=== PATIENT | female | born 1980 | race Caucasian/White ===

== ENCOUNTER 2022-03-07 09:12 | Outpatient (CLI) | payer OTHER, SELFPAY ==
[2022-03-07 10:24] LABS: Albumin* 4.8 g/dL (3.3-5.0); Chloride* 101 mmol/L (96-114); Potassium* 4.4 mmol/L (3.6-5.1); Sodium* 138 mmol/L (135-149)
[2022-03-07 10:26] LABS: Creatinine* 0.8 mg/dL (0.5-1.5); Estimated Glomerular Filt Rate 94 ml/min
[2022-03-07 10:27] LABS: Alanine Aminotransferase* 16 U/L (4-35); Alkaline Phosphatase* 58 U/L (40-150); Aspartate Amino Transferase* 24 U/L (12-35); Bilirubin Total* 0.6 mg/dL (0.1-1.5); Blood Urea Nitrogen* 12 mg/dL (5-24); Carbon Dioxide* 27 mmol/L (20-32)
[2022-03-07 10:28] LABS: Calcium* 9.5 mg/dL (8.4-10.6); Glucose* 89 mg/dL (60-115)
[2022-03-07 10:33] LABS: C Reactive Protein* < 0.5 mg/dL (0.5-1.0)
[2022-03-08 17:06] LABS: Rheumatoid Factor < 10 IU/mL (0-14)
[2022-03-09 05:07] LABS: Anti-Nuclear Ab(ANA)IgG ELISA None Detected (None Detected)
[2022-03-09 09:45] LABS: HLA-B27 Negative (Negative)
== END 2022-03-07 09:13 | disposition home or self-care (01) ==
PROVIDERS: PCP Family Medicine; Visit Provider Family Medicine
DX: Z01.419 Encounter for gynecological examination (general) (routine) without abnormal findings (principal); M25.50 Pain in unspecified joint; E78.5 Hyperlipidemia, unspecified; Z13.9 Encounter for screening, unspecified; N20.0 Calculus of kidney
CPT/HCPCS: 80053; 86039; 86140; 86200; 86431; 86618; 86812

== ENCOUNTER 2022-05-15 15:21 | Outpatient (CLI) | payer OTHER, SELFPAY ==
--- OUTSIDE RECORDS SUMMARY | 2022-05-15 15:23 | XMS_ITS | Clinical Summary ---
:1980 Author Organization [facility] [place] [address] Care Team Providers Name Role Phone Pcp, No Primary Care Provider Unavailable Allergies Active Allergy Reactions Severity Noted Date Comments Gluten Other - Describe In Comment Field 013 Celiac disease Nitrofurantoin Hives 11/01/2008 Medications Medication Sig Dispensed Refills Start Date End Date Status azithromycin (ZITHROMAX) Take 500 mg (2 6 tablet 0 02/20/2013 Active 250 mg tablet tabs) by mouth on day 1, then 250 mg (1 tab) daily for days 2-5. Active Problems Problem Noted Date Seasonal allergies Celiac disease Social History Tobacco Use Types Packs/Day Years Used Date Former Smoker Quit: 02/16/20 03 Tobacco Cessation: Counseling Given: Yes Alcohol Use Standard Drinks/Week Comments Not Asked 0 (1 standard drink = 0.6 oz pure alcoho l) Sex Assigned at Date Recorded Not on file Obstetrics History Last Filed Vital Signs Vital Sign Reading Time Taken Comments Blood Pressure 109/73 02/20/2013 7:09 AM CDT Pulse 65 02/20/2013 7:09 AM CDT Temperature 36.8 ??C (98.3 ??F) 02/20/2013 7:09 AM CDT Respiratory Rate - - Oxygen Saturation 99% 07/16/2012 7:28 AM [employer] Inhaled Oxygen Concentration - - Weight 58.3 kg (128 lb 9.6 oz) 02/20/2013 7:09 AM CDT Height - - Body Mass Index - - Plan of Treatment Health Maintenance Due Date Last Done Comments COVID-19 vaccine series (#1) 1980 Tdap 1989 Depression screening for age 12+ 1990 HIV for age 15-65 1993 BMI (ht and wt on same day) for 1996 age 18+ Hepatitis C screening for age 1004/05/1996 18-79 Tetanus booster 1998 Influenza for age 9-49 02/15/2022 Pap test for age 21-65 08/12/2023 08/12/2020, 08/12/2020, 09/28/2015, Additional history exists Results Not on filefrom Last 3 Months Insurance Payer Benefit Plan / Subscriber ID Effective Dates Phone Addre ss Type Group BLUE CROSS BL[employer] OF [id number] 2013-Present [address] [place] [address] ([place]) [place] [address] Care Teams Barytes Grinder Relationship Specialty Start Date End Date Pcp, No PCP - General 09/20/06 .
--- OUTSIDE RECORDS SUMMARY | 2022-05-15 15:23 | XMS_ITS | Encounter Summary ---
:1980 Author Organization [facility] Address [address] [place] [address] Care Team Providers Name Role Phone Unavailable Primary Care Provider Unavailable Reason for Referral Outpatient (Routine) - Pending Review Specialty Diagnoses / Procedures Referred By Contact Refer red To Contact Diagnoses Celiac Disease Bloating Abdominal Nazario Live M.D. [facility] Procedures Breath test, Hydrogen, Lactose - Lactase deficiency [address] [place] [address] Referral ID Status Reason Start Date Expiration Date Visits V isits Requested Authorized [id number] Pending 03/27/2022 03/27/2023 1 1 Review Reason for Visit Outpatient (Routine) - Pending Review Specialty Diagnoses / Procedures Referred By Contact Refer red To Contact Diagnoses Celiac Disease Bloating Abdominal Nazario Live M.D. [facility] Procedures Breath test, Hydrogen, Lactose - Lactase deficiency [address] [place] [address] Referral ID Status Reason Start Date Expiration Date Visits V isits Requested Authorized [id number] Pending 03/27/2022 03/27/2023 1 1 Review Encounter Details Date Type Department Care Team Description 03/28/2022 Hospital Division of Nazario Live e; Encounter Gastroenterology in [facility] Bloating Abdominal [place], [place] [address] [facility] [address] [place] [phone] Social History Tobacco Use Types Packs/Day Years Used Date Smoking Tobacco: Never Alcohol Habits Answer Date Recorded How often do you have a drink containing alcohol? 2-3 times a week 03/25/2022 How many drinks containing alcohol do you have on a 1 or 2 03/25/2022 typical day when you are drinking? How often do you have six or more drinks on one Never 03/25/2022 occasion? Social Isolation Answer Date Recorded In a typical week, how many times do you Once a week 03/25/2022 talk on the phone with family, friends, or neighbors? How often do you get together with friends Once a week 03/25/2022 or relatives? How often do you attend anabaptist or pentecostalism Never 03/25/2022 services? Do you belong to any clubs or organizations Yes 03/25/2022 such as anabaptist groups, unions, fraternal or athletic groups, or school groups? How often do you attend meetings of the More than 4 times r year 03/25/2022 clubs or organizations you belong to? Are you now , , , 03/25/2022 , never or living with a partner? Physical Activity Answer Date Recorded On average, how many days per week do you engage in moderate to 6 days 03/25/2022 strenuous exercise (like walking fast, running, jogging, dancing, swimming, biking, or other activities that cause a light or heavy sweat)? On average, how many minutes do you engage in exercise at th is 40 min 03/25/2022 level? Stress Answer Date Recorded Do you feel stress - tense, restless, nervous, or Only a lit tle 03/25/2022 anxious, or unable to sleep at night because your mind is troubled all the time - these days? Financial Resource Strain Answer Date Recorded How hard is it for you to pay for the very basics like Not h beau at all 03/25/2022 food, housing, medical care, and heating? Intimate Partner Violence Answer Date Recorded Within the last year, have you been afraid of your partner o r No 03/25/2022 ex-partner? Within the last year, have you been humiliated or emotionall y No 03/25/2022 abused in other ways by your partner or ex-partner? Within the last year, have you been kicked, hit, slapped, or No 03/25/2022 otherwise physically hurt by your partner or ex-partner? Within the last year, have you been raped or forced to have any No 03/25/2022 kind of sexual activity by your partner or ex-partner? Food Insecurity Answer Date Recorded Within the past 12 months, you worried that your food would Never true 03/25/2022 run out before you got money to buy more. Within the past 12 months, the food you bought just didn't N ever true 03/25/2022 last and you didn't have money to get more. Transportation Needs Answer Date Recorded In the past 12 months, has lack of transportation kept you f rom No 03/25/2022 medical appointments or from getting medications? In the past 12 months, has lack of transportation kept you f rom No 03/25/2022 meetings, work, or getting things needed for daily living? Housing Stability Answer Date Recorded In the last 12 months, was there a time when you were not ab le No 03/25/2022 to pay the mortgage or rent on time? In the last 12 months, how many places have you lived? 1 03/25/2022 In the last 12 months, was there a time when you did not hav e a No 03/25/[address] to [address] or slept in a longterm (including now)? Education Answer Date Recorded What is the highest level of school Master's degree (e.g., M A, MS, 03/25/2022 you have completed or the highest Alli, MEd, TELEPHONE COLLECTOR, MARVIN) degree you have received? Sex Assigned at Date Recorded Female 03/25/2022 11:18 AM CDT documented as of this encounter Plan of Treatment Scheduled Orders Name Type Priority Associated Diagnoses Order S chedule Breath test, Hydrogen, GI Routine Celiac Di sease Once for 1 Occurrences Lactose - Lactase Bloating Abdominal star ting 03/28/2022 deficiency until 2 documented as of this encounter Procedures Procedure Name Priority Date/Time Associated Diagnosis Comme nts HYDROGEN BREATH Routine 03/28/2022 9:14 AM Result s for this TEST CDT procedure are i n the results section. documented in this encounter Results Hydrogen Breath Test (03/28/2022 9:14 AM CDT) [facility] Method Time Signature Hydrogen Lactose 04/02/2022 [facility] Breath Test 7:42 AM CDT Peak H2 15 0 - 20 04/02/2022 [facility] Response ppm 7:42 AM CDT Hydrogen, 9 ppm 04/02/2022 [facility] Baseline 7:42 AM CDT Hydrogen, 30 10 ppm 04/02/2022 [facility] Minutes 7:42 AM CDT Hydrogen, 60 18 ppm 04/02/2022 [facility] Minutes 7:42 AM CDT Hydrogen, 90 21 ppm 04/02/2022 [facility] Minutes 7:42 AM CDT Hydrogen, 120 24 ppm 04/02/2022 [facility] Minutes 7:42 AM CDT Peak CH4 3 0 - 20 04/02/2022 [facility] Response ppm 7:42 AM CDT Methane, 6 ppm 04/02/2022 [facility] Baseline 7:42 AM CDT Methane, 30 7 ppm 04/02/2022 [facility] Minutes 7:42 AM CDT Methane, 60 8 ppm 04/02/2022 [facility] Minutes 7:42 AM CDT Methane, 90 9 ppm 04/02/2022 [facility] Minutes 7:42 AM CDT Methane, 120 8 ppm 04/02/2022 [facility] Minutes 7:42 AM CDT Symptoms See Comment 03/29/2022 [facility] 1:31 PM CDT Comment: REVISED RESULTS Positive breath test for lactose malabso rption. Although the patient did not have a significant rise of breath hydrog en, methane was detected and the patient experienced a combined hydrogen- methane increase of a least 15 PPM. These findings are suggestive of lactose malabsorption. ??Symptoms: ? Baseline: none ?? 30 Minute: none ?? 60 Minute: mild gas ?? 90 Minute: none 120 Minute: none Rolando Prater [id number] ----PREVIOUSLY REPORTED ---- Positive breath test for lactose malabsorption. Although the patient did not have a significant rise of breath hydrogen, methane was detected and the p atient experienced a combined hydrogen-methane increase of a least 15 PPM. These findings are suggestive of lactose malabsorption. ??Symptoms: ? Baseline: none ?? 30 Minute: none ?? 60 Minute: mild gas ?? 90 Minute: none 120 Minute: none Dennis Logan [id number] (Reported 03/28/2022 11:22) Specimen Anatomical Collection Method Collection Time Receive d Time (Source) Location / / Volume Laterality Breath 03/28/2022 9:14 AM 9:14 CDT AM CDT Nazario Live M.D. LAB BODY FLUIDS AND STOOLS O RDERABLES Performing Organization Address City/State/ZIP Code Phon e Number [facility] - [address] [place], [place] [address] [place] [address] [address] documented in this encounter Visit Diagnoses Diagnosis Celiac Disease Bloating Abdominal documented in this encounter
--- OUTSIDE RECORDS SUMMARY | 2022-05-15 15:23 | XMS_ITS | Encounter Summary ---
:1980 Author Organization [facility] Address [address] [place] [address] Care Team Providers Name Role Phone Unavailable Primary Care Provider Unavailable Encounter Details Date Type Department Care Team Description 03/27/2022 Clinical Support - Division of [facility] Gastroenterology in [place], [place], [place] [address] [facility] [address] [place] [phone] Social History Tobacco Use Types Packs/Day Years [...] or relatives? How often do you attend confucianism or yarsani Never 03/25/2022 services? Do you belong to any clubs or organizations Yes 03/25/2022 such as confucianism groups, unions, fraternal or athletic groups, or school groups? How often do you attend meetings of the More than 4 times pe r year 03/25/2022 clubs or organizations you [...] place to sleep or slept in a care home (including now)? Education Answer Date Recorded What is the highest level of school Master's degree (e.g., Aroldo Townsend, , 03/25/2022 you have completed or the highest Alli, MEd, CAPACITY MANAGER, MARVIN) degree you have received? Sex Assigned at Date Recorded Female 03/25/2022 11:18 AM CDT documented as of this encounter Plan of Treatment Not on filedocumented as of this encounter Visit Diagnoses Not on filedocumented in this encounter
--- OUTSIDE RECORDS SUMMARY | 2022-05-15 15:23 | XMS_ITS | Encounter Summary ---
:1980 Author Organization [facility] Address [address] [place] [address] Care Team Providers Name Role Phone Unavailable Primary Care Provider Unavailable Reason for Referral Outpatient (Routine) - Pending Review Specialty Diagnoses / Procedures Referred By Contact Refer red To Contact Diagnoses Celiac Disease Mary Chan M.D. [facility] Procedures EGD (EsophagealGastroDuodenoscopy) [address] [place], [place] [address] Referral ID Status Reason Start Date Expiration Date Visits V isits Requested Authorized [id number] Pending 03/16/2022 03/16/2023 1 1 Review Reason for Visit Outpatient (Routine) - Pending Review Specialty Diagnoses / Procedures Referred By Contact Refer red To Contact Diagnoses Celiac Disease Mary Chan M.D. [facility] Procedures EGD (EsophagealGastroDuodenoscopy) [address] [place] [address] Referral ID Status Reason Start Date Expiration Date Visits V isits Requested Authorized [id number] Pending 03/16/2022 03/16/2023 1 1 Review Encounter Details Date Type Department Care Team Description 03/30/2022 Hospital Encounter Division of Mary Chan Disease Gastroenterology in [facility] Townsend [place], [place] [address] [facility] [address] [place] [phone] Social History Tobacco Use Types Packs/Day Years Used Date Smoking Tobacco: Never Smokeless Tobacco: Former Tobacco Cessation: Counseling Given: Not Answered Alcohol Use Standard Drinks/Week Comments Yes 7 (1 standard drink = 0.6 oz pure alcoho l) Alcohol Habits Answer Date Recorded How often [...] or relatives? How often do you attend uatsdin or alevism Never 03/25/2022 services? Do you belong to any clubs or organizations Yes 03/25/2022 such as uatsdin groups, unions, fraternal or athletic groups, or [...] place to sleep or slept in a correction (including now)? Education Answer Date Recorded What is the highest level of school Master's degree (e.g., M A, MS, 03/25/2022 you have completed or the highest Alli, MEd, THERMOGRAPH OPERATOR, MARVIN) degree you have received? Sex Assigned at Date Recorded Female 03/25/2022 11:18 AM CDT documented as of this encounter Last Filed Vital Signs Vital Sign Reading Time Taken Comments Blood Pressure 123/82 03/30/2022 2:45 PM CDT Pulse 61 03/30/2022 2:45 PM CDT Temperature 36.4 ??C (97.5 ??F) 03/30/2022 2:31 PM CDT Respiratory Rate 14 03/30/2022 2:45 PM CDT Oxygen Saturation 100% 03/30/2022 2:45 PM CDT Inhaled Oxygen Concentration - - Weight 62.5 kg (137 lb 14.4 oz) 03/30/2022 1:44 PM CDT Height 161.2 cm (5' 3.47) 03/30/2022 1:44 PM CDT Body Mass Index 24.07 03/30/2022 1:44 PM CDT documented in this encounter Plan of Treatment Not on filedocumented as of this encounter Procedures Procedure Name Priority Date/Time Associated Diagnosis Comme nts SURGICAL PATHOLOGY Routine 03/30/2022 2:19 PM Res ults for this CDT procedure are i n the results section. BACTERIAL CULTURE, Routine 03/30/2022 2:18 PM Res ults for this SIBO CDT procedure are i n the results section. UPPER GI ENDOSCOPY Routine 03/30/2022 1:51 PM Celiac Disease R esults for this CDT procedure are i n the results section. EGD Routine 03/30/2022 1:51 PM Celiac Disease (ESOPHAGEALGASTRODU CDT ODENOSCOPY) documented in this encounter Results Surgical Pathology (03/30/2022 2:19 PM CDT) Component Value Ref Test Analysis Performed Pathologis t Range Method Time At Signature 04/03/2022 DTL 2:26 PM CDT Participated in Jania Gutiérrez 04/03/2022 DTL the D.O. -Pathology 2:26 PM Interpretation Fellow CDT Report Alberto Ludwig M.D., Ph.D. 04/03/2022 DTL electronically 2:26 PM signed by CDT I verify that I have examined all relevant slides/materials for the specimen(s) and rendered or confirmed the diagnosis. Gross Description A: ??Received in formalin labeled with the patien t's name, 04/03/2022 DTL medical record number, and duodenum-duodenum, known 2:26 PM celiac, CDT second part duodenum are four pale diaz-pink irregular soft tissues, ranging from 0.4-0.5 cm in greatest dimension. Specimens are submitted en toto in cassette A1. ??Grossed by ALFONSO. Workup B: ??Received in formalin labeled with the patient's name, medical record number, and duodenum duodenum, known celiac, duodenal bulb are three pale diaz-pink irregular soft tissues, ranging from 0.3-0.4 cm in greatest dimension. Specimens are submitted en toto in cassette B1. ??Grossed by MBB. C: ??Received in formalin labeled with the patient's name, medical record number, and stomach-stomach, antrum, body of stomach, incisura are six pale diaz-pink irregular soft tissues, ranging from 0.2-0.6 cm in greatest dimension. Specimens are submitted en toto in cassette C1. ??Grossed by MBB. Addendum H. pylori immunostain (C1) is negative. 04/09/2022 DTL 10:32 AM Signed by Bismark Camara M.D. 04/09/2022 10:32 AM CDT This test was developed using an analyte specific reagent. Its performance characteristics were determined by [facility] in a manner consistent with CLIA requirements. This test has not been cleared or approved by the U.S. Food and Drug Administration. Comment: REVISED RESULTS Interpretation FINAL DIAGNOSIS 04/09/2022 10:32 AM CDT DTL A. Duodenum, 2nd part, endoscopic biopsy: ??Duodenal mucosa with focal foveolar metaplasia. ??No evidence of celiac disease, Whipple's disease, or Giardia identified. B. Duodenum, Duodenal bulb, endoscopic biopsy: ??Duodenal mucosa with mild Charo's gland hyperplasia. ??No evidence of celiac disease, Whipple's disease, or Giardia identified. C. Stomach, Antrum, Body, Incisura, endoscopic biopsy: Antral and fundic mucosa with mild chronic gastritis and focal intestinal metaplasia. ??An immunohistochemical stain for Helicobacter pylori is pending and will be reported in an addendum. Specimen (Source) Anatomical Collection Method Collection Time Re ceived Time Location / / Volume Laterality Biopsy (Duodenum) 03/30/2022 2:19 PM CDT Biopsy (Duodenum) 03/30/2022 2:20 PM CDT Biopsy (Stomach) 03/30/2022 2:24 PM CDT Narrative This result has an attachment that is no t available. Jaiden Byrd LAB SURG PATH ORDERABLES Performing Organization Address City/State/ZIP Code Phon e Number [facility] - [address] [address] Bacterial Culture, SIBO (03/30/2022 2:18 PM CDT) [facility] Method Time Signature Bacterial Total intestinal microbiota recovered, 1,000-10,000 cf u/mL 04/01/2022 DTL Culture, SIBO Aerobic bacteria recovered, 1,000-10,000 cfu/mL 7:43 AM CDT No anaerobic bacteria recovered. Specimen (Source) Anatomical Collection Method Collection Time Re ceived Time Location / / Volume Laterality Aspirate 03/30/2022 2:18 PM (Duodenum) CDT Jaiden Byrd LAB MICROBIOLOGY - GENERAL ORDERABLES Performing Organization Address City/State/ZIP Code Phon e Number [address] Upper GI Endoscopy (03/30/2022 1:51 PM CDT) Specimen (Source) Anatomical Collection Method Collection Time Re ceived Time Location / / Volume Laterality 03/30/2022 1:51 PM CDT Impressions [facility] - 03/30/2022 2:35 PM CDT Post-op Diagnoses: ? - Z-line regular, 39 cm from the incisors. ? - Normal esophagus. ? - Normal stomach. Biopsied. ? - Flattened mucosa was found in t he duodenum, consistent with celiac ? disease. Biopsied. ? - Fluid aspiration was performed. Narrative [facility] - 03/30/2022 2:35 PM CDT [facility] 9 GI GI Patient Name: Landy Pugh Date of : 1980 Age: 41 Gender: Female Procedure Date: 03/30/2022 Procedure: ? Upper GI endoscopy Providers: ? Merlene Ledezma MD Referring Provider: ?Mary rogers MD Pre-op Diagnoses: ?Celiac dise ase Recommendation: ? - The patient will be observed po st-procedure, until all discharge ? criteria are met. ? - Resume previous diet. ? - PATHOLOGY/MICROBIOLOGY FOLLOW-U P: The ordering provider is responsible ? for reviewing results from specim ens obtained during this endoscopic ? procedure and communicating the f indings to the patient. If guidance is ? needed for interpreting endoscopi c findings or pathology results, please ? consider a gastroenterology e-con sult. Findings: ? The Z-line was regular and was fo und 39 cm from the incisors. ? The examined esophagus was normal . ? The entire examined stomach was n ormal. Biopsies were taken with a cold ? forceps for Helicobacter pylori t esting. ? Diffuse mild mucosal flattening w as found in the second portion of the ? duodenum. Biopsies were taken wit h a cold forceps for histology. The ? duodenal bulb appeared normal and was biopsied in a seperate bottle as ? requsted. ? Fluid aspiration for microbiology was performed in the second portion of ? the duodenum. Procedural Details: ? The patient was seen, evaluated, history reviewed, airway and heart-lung ? exams were performed by licensed provider and were satisfactory for ? planned level of sedation care. ? The risks, benefits and alternati ves for the procedure and sedation were ? discussed and informed consent wa s obtained. A procedural pause was ? conducted in the presence of assi sting personnel to verify the correct ? patient identity and procedure to be performed. Throughout the ? procedure, the patient's blood pr essure, pulse, and oxygen saturations ? were monitored continuously. The Gastroscope was introduced under direct ? vision through the mouth, and adv anced to the second part of duodenum. ? The upper GI endoscopy was accomp lished without difficulty. The patient ? tolerated the procedure well. Estimated Blood Loss: ?Estimated blo od loss: none. Complications: ? No immedia te complications. Sedation: ? Anesthesia was administered by an anesthesia professional. The following ? parameters were monitored: oxygen saturation, heart rate, blood ? pressure, respiratory rate, EKG, adequacy of pulmonary ventilation, and ? response to care. Attending Participation: I personally pe rformed the entire procedure. Jaiden Ledezma MD 03/30/2022 2:34:52 PM This report has been signed electronical ly. Number of Addenda: 0 Mary Chan M.D. GI PROCEDURE ORDERABLES Performing Organization Address City/State/ZIP Code Phon e Number [facility] documented in this encounter Visit Diagnoses Diagnosis Celiac Disease documented in this encounter
--- OUTSIDE RECORDS SUMMARY | 2022-05-15 15:23 | XMS_ITS | Encounter Summary ---
:1980 Author Organization [facility] Address [address] [place] [address] Care Team Providers Name Role Phone Unavailable Primary Care Provider Unavailable Encounter Details Date Type Department Care Team Description 03/30/2022 Ancillary Procedure Department of Gastroenterology Social History Tobacco Use Types Packs/Day Years Used Date Smoking Tobacco: Never Smokeless Tobacco: Former Alcohol Use Standard Drinks/Week Comments Yes 7 [...] or relatives? How often do you attend restoration or holiness Never 03/25/2022 services? Do you belong to any clubs or organizations Yes 03/25/2022 such as restoration groups, unions, fraternal or athletic groups, or [...] have completed or the highest Alli, MEd, SEED SALES MANAGER, MARVIN) degree you have received? Sex Assigned at Date Recorded Female 03/25/2022 11:18 AM CDT documented as of this encounter Plan of Treatment Not on filedocumented as of this encounter Procedures Procedure Name Priority Date/Time Associated Comments Diagnosis GASTROENTEROLOGY IMAGE Routine 03/30/2022 1:55 Re sults for this EXAM PM CDT procedure are i n the results section. documented in this encounter Results Upper GI endoscopy-Gastroenterology Image Exam (03/30/2022 1:55 PM CDT) Specimen (Source) Anatomical Collection Method Collection Time Re ceived Time Location / / Volume Laterality 03/30/2022 1:51 PM CDT Narrative [facility] - 03/30/2022 2:44 PM CDT This order has been created and auto-finalized to support the import of images acquired without order. The clini lashae documentation to support these images can be found on the encounter akilah t produced images. Provider Not In System IMG NON RAD IMAGING PROCEDUR ES Performing Organization Address City/State/ZIP Code Phon e Number [facility] documented in this encounter Visit Diagnoses Not on filedocumented in this encounter
--- OUTSIDE RECORDS SUMMARY | 2022-05-15 15:23 | XMS_ITS | Encounter Summary ---
:1980 Author Organization [facility] Address [address] [place] [id number] Care Team Providers Name Role Phone Unavailable Primary Care Provider Unavailable Reason for Visit Outpatient (Routine) - Closed Specialty Diagnoses / Procedures Referred By Contact Refer red To Contact Laboratory Medicine Diagnoses Celiac Disease Celiac Disease Celiac Disease Celiac Disease Celiac Disease Celiac Disease Celiac Disease Celiac Disease Celiac Disease Celiac Disease Celiac Disease Celiac Disease Celiac Disease Celiac Disease Celiac Disease Mary Chan Rst Lab Rohi Cl C and Pathology / Celiac Disease Celiac Disease Celiac Disease Celiac Disease Celiac Disease Celiac Disease Celiac Disease Celiac Disease M.D. [address] [place] [address] Laboratory Medicine Procedures ALKALINE PHOSPHATASE, S/P ALANINE AMINOTRANSFERASE (ALT), S/P BILIRUBIN, TOT, S/P BUN (BLOOD UREA NITROGEN), S/P CALCIUM, TOT, S/P CBC WITH DIFFERENTIAL, B CHLORIDE, S/P CHOLESTEROL, TOTAL, S COPPER, S CREATININE WITH EGFR, S/P [address] [place] [address] ELECTROPHORESIS, PROTEIN, S FERRITIN, S GLIADIN (DEAMIDATED) ABS EVAL, IGG AND IGA, S GLUCOSE, FASTING, S/P LACTATE DEHYDROGENASE (LD), S POTASSIUM, S/P SODIUM, S/P TISSUE TRANSGLUTAMINASE (TTG) AB, IGA, S VITAMIN B12 ASSAY, S ZINC, [place] [address] ACETYLCHOLINE RECEPTOR (MUSC LE ACHR) BINDING AB, S MUSCLE-SPECIFIC KINASE (MUSK) AUTOAB, S MG/LEMS EVALUATION, S LAB TEST BLOOD [id number] Phone: Referral ID Status Reason Start Date Expiration Date Visits Requ ested Visits Authorized [id number] Closed 03/28/2022 03/28/2023 1 1 Encounter Details Date Type Department Care Team Description 03/28/2022 [facility] Josefina Townsend and Pathology, [place] 200 [facility], in [place], [place] [address] [facility] [phone] [place], [place] (Work) [id number] [phone] Social History Tobacco Use Types Packs/Day Years [...] or relatives? How often do you attend mormon or anabaptism Never 03/25/2022 services? Do you belong to any clubs or organizations Yes 03/25/2022 such as mormon groups, unions, fraternal or athletic groups, or [...] place to sleep or slept in a fpc (including now)? Education Answer Date Recorded What is the highest level of school Master's degree (e.g., M A, MS, 03/25/2022 you have completed or the highest Alli, MEd, BRANCH OPERATIONS SPECIALIST, MARVIN) degree you have received? Sex Assigned at Date Recorded Female 03/25/2022 11:18 AM CDT documented as of this encounter Plan of Treatment Not on filedocumented as of this encounter Procedures Procedure Name Priority Date/Time Associated Comments Diagnosis MG/LEMS EVALUATION, S Routine 03/28/2022 6:57 Celiac Disease R esults for this AM CDT procedure are i n the results section. MUSCLE-SPECIFIC KINASE Routine 03/28/2022 6:57 Celiac Disease Results for this (MUSK) AUTOAB, S AM CDT procedure a re in the results section. COPPER, S Routine 03/28/2022 6:57 Celiac Disease Results fo r this AM CDT procedure are i n the results section. GLIADIN (DEAMIDATED) ABS Routine 03/28/2022 6:57 Celiac Diseas e Results for this EVAL, IGG AND IGA, S AM CDT procedu re are in the results section. TISSUE TRANSGLUTAMINASE Routine 03/28/2022 6:57 Celiac Disease Results for this (TTG) AB, IGA, S AM CDT procedure a re in the results section. ZINC, S Routine 03/28/2022 6:57 Celiac Disease Results fo r this AM CDT procedure are i n the results section. CBC WITH DIFFERENTIAL, B Routine 03/28/2022 6:57 Celiac Diseas e Results for this AM CDT procedure are i n the results section. BUN (BLOOD UREA Routine 03/28/2022 6:57 Celiac Disease Results for this NITROGEN), S/P AM CDT procedure are in the results section. ALANINE AMINOTRANSFERASE Routine 03/28/2022 6:57 Celiac Diseas e Results for this (ALT), S/P AM CDT procedure are i n the results section. SODIUM, S/P Routine 03/28/2022 6:57 Celiac Disease Results fo r this AM CDT procedure are i n the results section. ELECTROPHORESIS, Routine 03/28/2022 6:57 Celiac Disease Result s for this PROTEIN, S AM CDT procedure are i n the results section. POTASSIUM, S/P Routine 03/28/2022 6:57 Celiac Disease Results for this AM CDT procedure are i n the results section. ALKALINE PHOSPHATASE, Routine 03/28/2022 6:57 Celiac Disease R esults for this S/P AM CDT procedure are i n the results section. LACTATE DEHYDROGENASE Routine 03/28/2022 6:57 Celiac Disease R esults for this (LD), S AM CDT procedure are i n the results section. GLUCOSE, FASTING, S/P Routine 03/28/2022 6:57 Celiac Disease R esults for this AM CDT procedure are i n the results section. FERRITIN, S Routine 03/28/2022 6:57 Celiac Disease Results fo r this AM CDT procedure are i n the results section. VITAMIN B12 ASSAY, S Routine 03/28/2022 6:57 Celiac Disease Re sults for this AM CDT procedure are i n the results section. CREATININE WITH EGFR, Routine 03/28/2022 6:57 Celiac Disease R esults for this S/P AM CDT procedure are i n the results section. CHOLESTEROL, TOTAL, S Routine 03/28/2022 6:57 Celiac Disease R esults for this AM CDT procedure are i n the results section. CHLORIDE, S/P Routine 03/28/2022 6:57 Celiac Disease Results f or this AM CDT procedure are i n the results section. CALCIUM, TOT, S/P Routine 03/28/2022 6:57 Celiac Disease Resul ts for this AM CDT procedure are i n the results section. BILIRUBIN, TOT, S/P Routine 03/28/2022 6:57 Celiac Disease Res ults for this AM CDT procedure are i n the results section. documented in this encounter Results Myasthenia Gravis (MG)/Lambert-Eaton Myasthenic Syndrome (LEMS) Evaluation (03/28/2022 6:57 AM CDT) Analysis Performed At Patho logist Time Signature MG see below 03/30/2022 DTL Lambert-Eaton 3:57 PM CDT Interpretation , S Comment: No informative autoantibodies were detec jorge. A negative result does not exclude the diagnosis of an autoimmune n euromuscular junction disorder. ACh Receptor (Muscle) Binding Ab 0.00 <=0.02 nmol/L 9:29 AM CDT DTL Comment: ----ADDITIONAL INFORMATION---- This test was developed and its performa nce characteristics determined by [facility] in a manner consistent with CLIA requirements. This test has not been cleared or approved by the U.[place]. Jeannine d and Drug Administration. P/Q-Type Calcium Channel Ab 0.00 <=0.02 nmol/L 03/29/20 1:47 PM CDT DTL Comment: ----ADDITIONAL INFORMATION---- This test was developed and its performa nce characteristics determined by [facility] in a manner consistent with CLIA requirements. This test has not been cleared or approved by the U.[place]. Jeannine d and Drug Administration. Specimen Anatomical Collection Method Collection Time Receive d Time (Source) Location / / Volume Laterality Blood (Blood, 03/28/2022 6:57 AM 03/28/20 9:13 Venous) CDT AM CDT Narrative This result has an attachment that is no t available. Mary Chan M.D. LAB BLOOD NON ADD-ON Performing Organization Address [facility] Phon e Number [facility] - 200 [place], [place] [address] [place] [address] [facility] 200 [facility] Muscle-Specific Kinase (MuSK) Autoantibody (03/28/2022 6:57 AM CDT) P athologist Signature MuSK 0.00 0.00 - 0.02 03/30/2022 DT Autoantibody, S nmol/L 9:47 AM CDT Comment: ----ADDITIONAL INFORMATION---- This test was developed using an analyte specific reagent. Its performance characteristics were determined by [facility] in a manner consistent with CLIA requirements. This test has not bee n cleared or approved by the U.S. Food and Drug Administration. Specimen Anatomical Collection Method Collection Time Receive d Time (Source) Location / / Volume Laterality Blood (Blood, 03/28/2022 6:57 AM 03/28/20 9:13 Venous) CDT AM CDT Narrative This result has an attachment that is no t available. Mary Chan M.D. LAB BLOOD ADD-ON Performing Organization Address [facility] Phon e Number [facility] - [address] [place] [address] [address] [place] [address] [facility] 200 [facility] Zinc (03/28/2022 6:57 AM CDT) P athologist Signature Zinc, S 67 60 - 106 03/28/2022 2:54 [facility] mcg/dL PM CDT Comment: ----ADDITIONAL INFORMATION---- This test was developed and its performa nce characteristics determined by [facility] in a manner consistent with CLIA requirements. This test has not been cleared or approved by the U.[place]. Jeannine d and Drug Administration. Specimen Anatomical Collection Method Collection Time Receive d Time (Source) Location / / Volume Laterality Blood (Blood, 03/28/2022 6:57 AM 03/28/20 Venous) CDT 10:09 AM CDT Mary Chan M.D. LAB BLOOD NON ADD-ON Performing Organization Address City/[facility] Phon e Number [facility] [address] [place], [place] [address] [facility] [place] [address] [facility] [address] [place] Vitamin B12 Assay (03/28/2022 6:57 AM CDT) athologist Signature Vitamin B12 358 180 914 03/28/2022 DTL Assay, S ng/L 8:50 AM CDT Comment: ----ADDITIONAL INFORMATION---- In patients being evaluated for vitamin B12 deficiency who have intrinsic factor blocking antibodie s (IFBA), false elevations of B12 may occur due to IFBA interference thus potentially obscuring a physiological de ficiency of B12. If observed B12 concentrations are disco rdant with clinical presentation, measurement of methylmalon ic acid (MMA) should be considered. Specimen Anatomical Collection Method Collection Time Receive d Time (Source) Location / / Volume Laterality Blood (Blood, 03/28/2022 6:57 AM 03/28/20 7:38 Venous) CDT AM CDT Mary Chan M.D. LAB BLOOD ADD-ON Performing Organization Address City/[facility] Code Phon e Number [facility] - [address] [place], [place] [address] [place], [place] [id number] [place] [address]-[facility] [address] tTG (Tissue Transglutaminase), Antibody, IgA (03/28/2022 6:57 AM CDT) Patholo gist Method Time Signature Tissue <1.2 <4.0 03/28/2022 [facility] Transglutaminase Ab, (Negative 4:22 PM CDT IgA, S ) U/mL Specimen Anatomical Collection Method Collection Time Receive d Time (Source) Location / / Volume Laterality Blood (Blood, 03/28/2022 6:57 AM 03/28/20 9:36 Venous) CDT AM CDT Mary Chan M.D. LAB BLOOD ADD-ON Performing Organization Address City/State/ZIP Code Phon e Number [facility] [address] [place], [place] [address] [place], [place] [id number] [place] [address] Dr. RUELAS Sodium (03/28/2022 6:57 AM CDT) P athologist Signature Sodium, S 140 135 - 145 03/28/2022 7:58 DTL mmol/L AM CDT Specimen Anatomical Collection Method Collection Time Receive d Time (Source) Location / / Volume Laterality Blood (Blood, 03/28/2022 6:57 AM 03/28/20 7:38 Venous) CDT AM CDT Mary Chan M.D. LAB BLOOD ADD-ON Performing Organization Address City/[facility]/ZIP Code Phon e Number [facility] - [address] [place] [address] [facility] Potassium (03/28/2022 6:57 AM CDT) P athologist Signature Potassium, S 4.1 3.6 - 5.2 03/28/2022 DTL mmol/L 7:58 AM CDT Specimen Anatomical Collection Method Collection Time Receive d Time (Source) Location / / Volume Laterality Blood (Blood, 03/28/2022 6:57 AM 03/28/20 7:38 Venous) CDT AM CDT Mary Chan M.D. LAB BLOOD ADD-ON Performing Organization Address City/State/ZIP Code Phon e Number [facility] - [address] LD (Lactate Dehydrogenase) (03/28/2022 6:57 AM CDT) Analysis Performed At Patho logist Time Signature Lactate 147 122 - 222 03/28/2022 DTL Dehydrogenase U/L 7:58 AM CDT (LD), S Specimen Anatomical Collection Method Collection Time Receive d Time (Source) Location / / Volume Laterality Blood (Blood, 03/28/2022 6:57 AM 03/28/20 7:38 Venous) CDT AM CDT Mary Chan M.D. LAB BLOOD NON ADD-ON Performing Organization Address [facility] Phon e Number [facility] - 200 [place], [place] [address] [facility] [place], [place] [address] [place] [address] Glucose, Fasting (03/28/2022 6:57 AM CDT) athologist Signature Glucose, P 85 70 - 100 03/28/2022 DTL mg/dL 7:55 AM CDT Last Intake 10 hr 03/28/2022 DT 7:38 AM CDT Specimen Anatomical Collection Method Collection Time Receive d Time (Source) Location / / Volume Laterality Blood (Blood, 03/28/2022 6:57 AM 03/28/20 7:38 Venous) CDT AM CDT Mary Chan M.D. LAB BLOOD NON ADD-ON Performing Organization Address City/[facility] Phon e Number [facility] - [address] [place], [place] [address] [place] [phone] [place] [address] Gliadin (Deamidated) Antibodies Evaluation, IgG and IgA (03/28/2022 6:57 AM CDT) athologist Signature Gliadin(Deamida <10.0 <20.0 03/28/2022 [facility] jorge) Ab, IgA, S (Negative) 8:53 PM CDT U Gliadin(Deamida <10.0 <20.0 03/28/2022 [facility] jorge) Ab, IgG, S (Negative) 8:53 PM CDT U Specimen Anatomical Collection Method Collection Time Receive d Time (Source) Location / / Volume Laterality Blood (Blood, 03/28/2022 6:57 AM 03/28/20 9:36 Venous) CDT AM CDT Mary Chan M.D. LAB BLOOD ADD-ON Performing Organization Address City/[facility] Phon e Number [facility] [address] [place], [place] [address] [facility] [address] [facility] [address] [place] [address] Dr. RUELAS Ferritin (03/28/2022 6:57 AM CDT) P athologist Signature Ferritin, S 55 11 - 307 03/28/2022 DTL mcg/L 8:25 AM CDT Specimen Anatomical Collection Method Collection Time Receive d Time (Source) Location / / Volume Laterality Blood (Blood, 03/28/2022 6:57 AM 03/28/20 7:38 Venous) CDT AM CDT Mary Chan M.D. LAB BLOOD ADD-ON Performing Organization Address City/[facility]/ZIP Code Phon e Number [facility] - [address] [place] [address] [place] [place] [address] [facility] [address] Electrophoresis, Protein (03/28/2022 6:57 AM CDT) Patholo gist Method Time Signature Total Protein, 7.2 6.3 - 7.9 03/28/2022 [facility] S g/dL 10:35 AM CDT Albumin 3.5 3.4 - 4.7 03/28/2022 [facility] g/dL 3:53 PM CDT Alpha-1 0.2 0.1 - 0.3 03/28/2022 [facility] Globulin g/dL 3:53 PM CDT Alpha-2 1.0 0.6 - 1.0 03/28/2022 [facility] Globulin g/dL 3:53 PM CDT Beta-Globulin 1.0 0.7 - 1.2 03/28/2022 [facility] g/dL 3:53 PM CDT Gamma-Globulin 1.6 0.6 - 1.6 03/28/2022 [facility] g/dL 3:53 PM CDT A/G Ratio 0.94 03/28/2022 [facility] 3:53 PM CDT Impression No apparent 03/28/2022 [facility] monoclonal 3:53 PM CDT protein on serum electrophoresi s. Specimen Anatomical Collection Method Collection Time Receive d Time (Source) Location / / Volume Laterality Blood (Blood, 03/28/2022 6:57 AM 03/28/20 Venous) CDT 10:03 AM CDT Mary Chan M.D. LAB BLOOD ADD-ON Performing Organization Address City/State/ZIP Code Phon e Number [facility] [address] [place], [place] [address] [facility] [place] [address] [facility] [address] [place] [address] Dr. RUELAS Creatinine with Estimated GFR (03/28/2022 6:57 AM CDT) athologist Signature Creatinine 0.85 0.59 - 03/28/2022 DTL 1.04 mg/dL 7:58 AM CDT Estimated GFR 87 >=60 03/28/2022 DTL (eGFR) mL/min/BSA 7:58 AM CDT Comment: Estimated GFR calculated using the 2020 CKD_EPI creatinine equation. Specimen Anatomical Collection Method Collection Time Receive d Time (Source) Location / / Volume Laterality Blood (Blood, 03/28/2022 6:57 AM 03/28/20 7:38 Venous) CDT AM CDT Mary Chan M.D. LAB BLOOD ADD-ON Performing Organization Address City/State/ZIP Code Phon e Number [facility] - [address] [place], [place] [address] [place] [address] [facility] [address] Copper (03/28/2022 6:57 AM CDT) athologist Signature Copper, S 107 77 - 206 03/28/2022 2:54 [facility] mcg/dL PM CDT Comment: ----ADDITIONAL INFORMATION---- This test was developed and its performa nce characteristics determined by [facility] in a manner consistent with CLIA requirements. This test has not been cleared or approved by the U.[place]. Jeannine d and Drug Administration. Specimen Anatomical Collection Method Collection Time Receive d Time (Source) Location / / Volume Laterality Blood (Blood, 03/28/2022 6:57 AM 03/28/20 Venous) CDT 10:09 AM CDT Mary Chan M.D. LAB BLOOD NON ADD-ON Performing Organization Address City/State/ZIP Code Phon e Number [facility] [address] [place], [place] [address] [place] [address] [facility] [address] [place] Cholesterol, Total (03/28/2022 6:57 AM CDT) athologist [facility] Cholesterol, 164 mg/dL 03/28/2022 DTL Total 7:58 AM CDT Comment: ----REFERENCE VALUE---- Desirable: < 200 mg/dL Borderline High: 200 - 239 mg/dL High: > or = 240 mg/dL Specimen Anatomical Collection Method Collection Time Receive d Time (Source) Location / / Volume Laterality Blood (Blood, 03/28/2022 6:57 AM 03/28/20 22 7:38 Venous) CDT AM CDT Mary Chan M.D. LAB BLOOD ADD-ON Performing Organization Address City/[facility] Phon e Number [facility] - [address] Chloride (03/28/2022 6:57 AM CDT) [facility] Chlor[facility], S 104 98 - 107 03/28/2022 DTL mmol/L 7:58 AM CDT Specimen Anatomical Collection Method Collection Time Receive d Time (Source) Location / / Volume Laterality Blood (Blood, 03/28/2022 6:57 AM 03/28/20 22 7:38 Venous) CDT AM CDT Mary Chan M.D. LAB BLOOD ADD-ON Performing Organization Address City/State/[facility] Phon e Number [facility] - [address] [place], [place] [address] [facility] [address] CBC with Differential, Blood (03/28/2022 6:57 AM CDT) athologist [facility] Hemoglobin 14.2 11.6 - 03/28/2022 DTL 15.0 g/dL 7:40 AM CDT Hematocrit 43.0 35.5 - 03/28/2022 DTL 44.9 % 7:40 AM CDT Erythrocytes 4.72 3.92 - 03/28/2022 DTL 5.13 7:40 AM CDT x10(12)/L MCV 91.1 78.2 - 03/28/2022 DTL 97.9 fL 7:40 AM CDT RBC Distrib Width 13.1 12.2 - 03/28/2022 DTL 16.1 % 7:40 AM CDT Platelet Count 252 157 - 371 03/28/2022 DTL x10(9)/L 7:40 AM CDT Leukocytes 4.9 3.4 - 9.6 03/28/2022 DTL x10(9)/L 7:40 AM CDT Neutrophils 2.39 1.56 - 03/28/2022 DTL 6.45 7:40 AM CDT x10(9)/L Lymphocytes 1.77 0.95 - 03/28/2022 DTL 3.07 7:40 AM CDT x10(9)/L Monocytes 0.46 0.26 - 03/28/2022 DTL 0.81 7:40 AM CDT x10(9)/L Eosinophils 0.23 0.03 - 03/28/2022 DTL 0.48 7:40 AM CDT x10(9)/L Basophils 0.04 0.01 - 03/28/2022 DTL 0.08 7:40 AM CDT x10(9)/L Specimen Anatomical Collection Method Collection Time Receive d Time (Source) Location / / Volume Laterality Blood (Blood, 03/28/2022 6:57 AM 03/28/20 22 7:20 Venous) CDT AM CDT Mary Chan M.D. LAB BLOOD ADD-ON Performing Organization Address City/State/ZIP Code Phon e Number [facility] - [address] [place], [place] [address] [place] [address] [facility] [address] Calcium, Total (03/28/2022 6:57 AM CDT) P athologist Signature Calcium, Total, 9.1 8.6 - 10.0 03/28/2022 DTL S mg/dL 7:58 AM CDT Specimen Anatomical Collection Method Collection Time Receive d Time (Source) Location / / Volume Laterality Blood (Blood, 03/28/2022 6:57 AM 03/28/20 22 7:38 Venous) CDT AM CDT Mary Chan M.D. LAB BLOOD ADD-ON Performing Organization Address City/[facility] Code Phon e Number [facility] - [address] [place], [place] [address] [place] [id number] [place] [address] [facility] BUN (Blood Urea Nitrogen) (03/28/2022 6:57 AM CDT) P athologist Signature BUN (Blood Urea 11 6 - 21 03/28/2022 DTL Nitrogen), S mg/dL 7:58 AM CDT Specimen Anatomical Collection Method Collection Time Receive d Time (Source) Location / / Volume Laterality Blood (Blood, 03/28/2022 6:57 AM 03/28/20 22 7:38 Venous) CDT AM CDT Mary Chan M.D. LAB BLOOD ADD-ON Performing Organization Address City/[facility]/ZIP Code Phon e Number [facility] - [address] [place], [place] [address] [place] [id number] [place] [address] [facility] Bilirubin, Total (03/28/2022 6:57 AM CDT) P athologist Signature Bilirubin, 0.6 <=1.2 mg/dL 03/28/2022 DTL Total, S 7:58 AM CDT Specimen Anatomical Collection Method Collection Time Receive d Time (Source) Location / / Volume Laterality Blood (Blood, 03/28/2022 6:57 AM 03/28/20 22 7:38 Venous) CDT AM CDT Mary Chan M.D. LAB BLOOD ADD-ON Performing Organization Address City/[facility]/ZIP Code Phon e Number [facility] - [address] [place], [place] [address] ALT (Alanine Aminotransferase) (03/28/2022 6:57 AM CDT) Patholo gist Method Time Signature Alanine 17 7 - 45 03/28/2022 DTL Aminotransferase U/L 7:58 AM CDT (ALT), S Specimen Anatomical Collection Method Collection Time Receive d Time (Source) Location / / Volume Laterality Blood (Blood, 03/28/2022 6:57 AM 03/28/20 22 7:38 Venous) CDT AM CDT Mary Chan M.D. LAB BLOOD ADD-ON Performing Organization Address City/[facility] Phon e Number [facility] - [id number] [place] [address] Alkaline Phosphatase (03/28/2022 6:57 AM CDT) P athologist Signature Alkaline 51 35 - 104 03/28/2022 DTL Phosphatase, S U/L 7:58 AM CDT Specimen Anatomical Collection Method Collection Time Receive d Time (Source) Location / / Volume Laterality Blood (Blood, 03/28/2022 6:57 AM 03/28/20 22 7:38 Venous) CDT AM CDT Mary Chan M.D. LAB BLOOD ADD-ON Performing Organization Address City/[facility] Code Phon e Number [facility] - [address] documented in this encounter Visit Diagnoses Diagnosis Celiac Disease documented in this encounter
--- OUTSIDE RECORDS SUMMARY | 2022-05-15 15:23 | XMS_ITS | Encounter Summary ---
:1980 Author Organization [facility] Address [address] [place] [id number] Care Team Providers Name Role Phone Unavailable Primary Care Provider Unavailable Reason for Referral Outpatient (Routine) - Pending Review Specialty Diagnoses / Procedures Referred By Contact Refer red To Contact Diagnoses Celiac Disease Mary Chan M.D. [facility] Procedures EGD [address] [place], [place] [phone] Referral ID Status Reason Start Date Expiration Date Visits V isits Requested Authorized [id number] Pending 04/16/2022 04/16/2023 1 1 Review Encounter Details Date Type Department Care Team Description 04/16/2022 Orders Only Division of Mary Chan Celiac Dise ase Gastroenterology in Josefina Townsend (Primary Dx) [place], [place] [address] [facility] [address] [place] [phone] Social History Tobacco Use Types Packs/Day Years [...] or relatives? How often do you attend yazidi or yarsanism Never 03/25/2022 services? Do you belong to any clubs or organizations Yes 03/25/2022 such as yazidi groups, unions, fraternal or athletic groups, or [...] place to sleep or slept in a retirement (including now)? Education Answer Date Recorded What is the highest level of school Master's degree (e.g., M A, MS, 03/25/2022 you have completed or the highest Alli, MEd, CUSTOMER INSIGHT ANALYST, MARVIN) degree you have received? Sex Assigned at Date Recorded Female 03/25/2022 11:18 AM CDT documented as of this encounter Plan of Treatment Scheduled Orders Name Type Priority Associated Diagnoses Order S chedule EGD GI Routine Celiac Disease Expected: (Approximate), Expires: 04/16/2026 documented as of this encounter Visit Diagnoses Diagnosis Celiac Disease - Primary documented in this encounter
--- OUTSIDE RECORDS SUMMARY | 2022-05-15 15:23 | XMS_ITS | Encounter Summary ---
:1980 Author Organization [facility] Address [address] [place] [address] Care Team Providers Name Role Phone Unavailable Primary Care Provider Unavailable Reason for Referral Outpatient (Routine) - Pending Review Specialty Diagnoses / Procedures Referred By Contact Refer red To Contact Diagnoses Celiac Disease Bloating Abdominal Nazario Live M.D. [facility] Procedures Breath test, Hydrogen, Lactose - Lactase deficiency [address] [place] [address] Referral ID Status Reason Start Date Expiration Date Visits V isits Requested Authorized [id number] Pending 03/27/2022 03/27/2023 1 1 Review Reason for Visit Reason Comments Celiac Disease Outpatient (Routine) - Pending Review Specialty Diagnoses / Referred By Referred To Cont act Procedures Contact Gastroenterology and Diagnoses Celiac Disease Bloating Abdominal Keyla Taylor [facility] Hepatology Josefina Torrez [address] [place] [address] Referral ID Status Reason Start Date Expiration Date Visits V isits Requested Authorized [id number] Pending 03/14/2022 03/14/2023 1 1 Review Encounter Details Date Type Department Care Team Description 03/27/2022 Comprehensive Visit Division of Hugo Taylor M.D. [address] [place] [address] Celiac Disease (Primary Dx); Gastroenterology in Mary Chan M.D. [address] [place] [address] Bloating Abdominal [place], [place] [address] [place] [address] Social History Tobacco Use Types Packs/Day Years [...] or relatives? How often do you attend mandaeism or jain Never 03/25/2022 services? Do you belong to any clubs or organizations Yes 03/25/2022 such as mandaeism groups, unions, fraternal or athletic groups, or [...] place to sleep or slept in a [facility] (including now)? Education Answer Date Recorded What is the highest level of school Master's degree (e.g., M A, MS, 03/25/2022 you have completed or the highest Alli, MEd, HARNESS MENDER, MARVIN) degree you have received? Sex Assigned at Date Recorded Female 03/25/2022 11:18 AM CDT documented as of this encounter Last Filed Vital Signs Vital Sign Reading Time Taken Comments Blood Pressure 137/88 03/27/2022 1:19 PM CDT Pulse 74 03/27/2022 1:19 PM CDT Temperature - - Respiratory Rate - - Oxygen Saturation - - Inhaled Oxygen Concentration - - Weight 62.5 kg (137 lb 14.4 oz) 03/27/2022 1:19 PM CDT Height 161.2 cm (5' 3.47) 03/27/2022 1:19 PM CDT Body Mass Index 24.07 03/27/2022 1:19 PM CDT documented in this encounter Consult Notes Mary Chan M.D. - 03/27/2022 1:10 PM CDT Referring Physician: Keyla Taylor M.D. Primary Care Physician: No primary care provider on file. SUBJECTIVE CHIEF COMPLAINT / REASON FOR VISIT Celiac HISTORY OF PRESENT ILLNESS Patient is a 41-year-old female being seen in celiac Clinic. She was diagnosed with celiac disease in 1987 as a child, biopsy-proven on upper EGD and positive gliadin antibodies. and has been on a gluten free diet ever since with improvement of symptoms at least initially. Diagnosis of celiac disease made in 1988 This was diagnosed in [place] by a pediatric tax processor. Prior to that she had chronic GI symptoms, failure to grow, failure to gain weight, also interestingly had scoliosis, and she had a dramatic catch-up growth following her diagnosis. She has not had a scope since this time. She also had a bone scan near time of diagnosis. Since that point, she had been doing relatively well up until about 3 years ago when she started to notice new symptoms and does have recently the symptoms have become more prominent. She endorses loose stools, but this is not particularly new, and denies constipation. No significant abdominal pain. She does endorse peripheral neuropathy of her hands bilaterally, that occasionally wakes her up at night, and arthritis of her hips and lower back. She was taking ibuprofen or other NSAIDs for 4-6 monthsseveral times a day, alternating with Tylenol reports that she is no longer taking a significant amount of NSAIDs. No history of GI bleeds per chart review. She does not have any rashes but does endorse an itchy scalp. She will be seeing Dermatology in the near future. Additionally she reports some gas and bloating, especially with dairy products but this does not appear to be every time. She has started taking Lactaid. She also reports some congestion with certain foods and feels as though she has poor projection of her voice, almost as though her throat is week after eating. These are relatively n ew symptoms. There is a history of celiac disease in her mom and likely her son although he is not diagnosed by biopsy. No autoimmune disease personally. Her father has a thyroid disorder but unclear if this is autoimmune or not. She is been tested in the past or thyroid is normal currently. Not on any medications right now. Taking a multivitamin daily. Drinks socially. She is a never smoker. The following portions of the patient's history were reviewed and updated as appropriate: allergies,current medications, family history, medical history, social history, surgical history, and problem list. REVIEW OF SYSTEMS Negative other than what is noted per hpi. OBJECTIVE PHYSICAL EXAM There were no vitals filed for this visit. General: well-appearing, in NAD HEENT: NC/AT, eyes EOMI, MMM, neck supple Lungs: CAB, no wheezes or crackles. No increased work of breathing Heart: S1S2, RRR, no m/r/g. peripheral pulses present throughout Abdomen: NABS, soft NTND, no masses Skin: warm, dry, no rash, no jaundice Neuro: AA&Ox3, CN II-XII grossly intact DIAGNOSTICS Reviewed. ASSESSMENT / PLAN IMPRESSION/PLAN Diagnoses/Problems Addressed #1 Celiac disease #2 Probable lactose intolerance secondary to Celiac SUMMARY: Patient is a 41-year-old female being seen in celiac Clinic. Diagnosis of celiac disease made in 1987 by biopsy and positive gliadin antibodies. She has been on a gluten free diet since time of diagnosis with improvement in symptoms for many years until the last few years when she has had new GI symptoms in addition to joint pain, congestion, and throat weakness with dairy products. The congestion she is experiencing when eating dairy is likely due to a vagal response and we would expect to improve with a gluten free and dairy free diet. The weakness in her throat could be due to something autoimmune in nature like myasthenia gravis versus spasmodic dysphonia. In 1999, Landy underwent a lactose breath test. However, hydrogen breath test results did not showa rise of more than 20 parts per million. 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 This is likely due to some subtle changes related to her celiac disease affecting the tips of her houser. PLAN: Egd with Celiac biopsies aand aspirate (scheduled for 03/30) Lactose breath test Labs: cbc, cmp, zinc, copper, chloride, vit b12, tTG, gliadin, ferritin, LD Achr & musk (MG work up) 5. Her workup is negative for myasthenia gravis, and we feel this could be due to spasmodic dysphonia, we could refer her to ENT/speech pathology for behavior modification. 6. DEXA only if celiac disease is active 7. Continue gluten free diet and likely dairy free diet (or with LactAid). I personally spent over half of total 60 minutes in counseling and discussion with the patient and coordination of care as described above. This patient was staffed with Dr. Live. PATIENT EDUCATION Patient ready to learn, learning preferences including listening. Explained diagnosis and treatment plan; patient expressed understanding of the content. Thank you for allowing us to participate in the care of the patient. Please feel free to page or message with any questions or concerns. Mary Chan M.D. Gastroenterology Fellow Nazario Live M.D. - 03/27/2022 1:10 PM CDT SUBJECTIVE Supervising note for Dr. Mary Chan. HISTORY OF PRESENT ILLNESS Ms. Pugh is a very pleasant 41-year-old white female from [place], [place], who has come because of GI symptoms and other concerns. Starting about 3 years ago, she started to notice some recurrence of bloating; gas; loose stools, though not mary diarrhea, sometimes associated with cramping. No constipation or real abdominal pain. This had started in the context of having joint pain, especially her right hip and shoulder and would find it difficult to sleep and would wake her up, and she wastaking NSAIDs overlapping with Tylenol. She also had back pain. She has had some significant changesin her back. The GI symptoms got worse about 3 months ago. She also has noticed some congestion in her throat and nose after eating. She has not noticed any particular triggers for this. She has also noticed a sensation of low voice and inability to project her voice often after eating or with trying to project her voice but normal speaking voice is fine. She also a question of lactose or milk intolerance. She finds that certainly drinking milk or taking dairy products sometimes she does not feel particularly well. She has a diagnosis of celiac disease made in 1987. Her initial issue was with positive gliadin antibody and positive biopsies, because of failure to thrive, scoliosis, and GI symptoms,and she had an excellent response to a gluten-free diet, which she still follows to this day. She notices if she gets exposed to gluten that she will get anxiety and brain fog. She will also get some abdominal pain, diarrhea, or loose stools, but usually that is over quickly. FAMILY HISTORY Mom with celiac disease, and she is suspicious that her son may also have it. Her father also had thyroid disease. OBJECTIVE PHYSICAL EXAMINATION General: Very healthy-appearing white female, good nutritional status. Scoliosis of her spine. Abdominal Examination: No masses, no organomegaly. Some very mild tenderness to deep palpation in the left side of the abdomen. No edema. ASSESSMENT / PLAN #1 Celiac disease of definite diagnosis There is a concern that there may be recurrence of celiac disease. We will check her serology, and Iwill check an endoscopy with biopsies. There is a possibility that if she has active celiac disease,it could contribute to osteoporosis, and so a bone density, I think, is in order. It may be limited by the degree of degenerative disease and her prior surgery for scoliosis. A lactose breath test would be in order, and she would prefer to get this done before we would do a fructose breath test, and Iwould agree. Nazario Live M.D. CT CT Job ID: [id number] documented in this encounter Plan of Treatment Scheduled Orders Name Type Priority Associated Diagnoses Order S chedule Breath test, Hydrogen, GI Routine Celiac Di sease Expected: 03/28/2022 Lactose - Lactase Bloating Abdominal ([place] roximate), deficiency Expires: 2023 documented as of this encounter Results Myasthenia Gravis (MG)/Lambert-Eaton Myasthenic [...] its performa nce characteristics determined by [facility] in a manner consistent with CLIA requirements. This test has not been cleared or approved by the [place] d and Drug Administration. P/Q-Type Calcium Channel Ab 0.00 <=0.02 nmol/L 03/29/20 1:47 PM CDT DTL Comment: ----ADDITIONAL INFORMATION---- This test was developed and its performa nce characteristics determined by [facility] in a manner consistent with CLIA [...] Organization Address City/State/ZIP Code Phon e Number [facility] - [address] [place] [phone] [place] [address] [facility] [address] [facility] Muscle-Specific Kinase (MuSK) Autoantibody (03/28/2022 6:57 AM CDT) P athologist Signature MuSK 0.00 0.00 - 0.02 03/30/2022 DT Autoantibody, S nmol/L 9:47 AM CDT Comment: ----ADDITIONAL INFORMATION---- This test was developed using an analyte specific reagent. Its performance characteristics were determined by [facility] in a manner consistent with CLIA [...] Organization Address City/State/ZIP Code Phon e Number [facility] - [address] [place], [place] [address] [facility] [place] [address] [facility] [address] documented in this encounter Visit Diagnoses Diagnosis Celiac Disease - Primary Bloating Abdominal documented in this encounter
--- OUTSIDE RECORDS SUMMARY | 2022-05-15 15:23 | XMS_ITS | Clinical Summary ---
:1980 Author Organization [facility] Address [address] [place] [address] Care Team Providers Name Role Phone Unavailable Primary Care Provider Unavailable Source Comments Patient records contain information from all sites at [facility]. For routine questions regarding patient records, call [phone] during business hours, M-F 8:00 AM - 5:00 PM Central Time. Record requests for emergency care only can be directed to [phone] at any time.[facility] Allergies Active Allergy Reactions Severity Noted Date Comments Gluten Other (see comments) 07/16/2012 Celiac disease Nitrofurantoin Hives 11/01/2008 Nitrofurantoin Other (see comments) 12/26/2013 Monohyd/M-Cryst Medications No known medications Encounters Date Type Specialty Care Team Description 04/16/2022 Orders Only Gastroenterology and Yoav Chan Hepatology Mary Townsend (Primary Dx) Josefina 03/30/2022 Anesthesia Event Gastroenterology and Ben James Hepatology Dennis, SOAP CHIPPER, CH[place] PAINTER 03/30/2022 Ancillary Procedure 03/30/2022 Hospital Encounter Gastroenterology and Israel Chan Hepatology Mary Townsend M.D. 03/28/2022 Hospital Encounter Gastroenterology and Nazario Live Celiac Disease; Hepatology Josefina Townsend Bloating Abdomi nal 03/28/2022 Hospital Encounter Laboratory Medicine Tala Chan liac Hiren Townsend M.D. 03/27/2022 Comprehensive Visit Gastroenterology and Brandon Celiac Disease (Primary Dx); Hepatology Keyla Torrez M.D. Bloating Abdominal Mary Chan M.D. 03/27/2022 Clinical Support - Gastroenterology and Ludin Becerril [facility] Hepatology ESTHELA Daugherty 03/15/2022 Clinical Gastroenterology and Prescheduling, Communication Hepatology Provider 03/14/2022 Community Orders Brandon, Celiac Dise ase (Primary Dx); Josefina Cano from Last 3 Months Immunizations Name Administration Dates Next Due DTaP (Infanrix, Tripedia) 10/10/1983, 1978, 1978 , 1978 MMR 08/29/1993, 07/09/1979 OPV 10/10/1983, 1978, 1978, 05/17 Social History Tobacco Use Types Packs/Day Years [...] How often do you attend yazidi or scientology Never 03/25/2022 services? Do you belong to [...] minutes do you engage in exercise at is 40 min 03/25/2022 level? Stress Answer [...] place to sleep or slept in a mcc (including now)? Education Answer Date Recorded What is the highest level of school Master's degree (e.g., M A, MS, 03/25/2022 you have completed or the highest Alli, MEd, ROOM DESIGNER, MARVIN) degree you have received? Sex Assigned at Date Recorded Female 03/25/2022 11:18 AM CDT Last Filed Vital Signs Vital Sign Reading [...] Mass Index 24.07 03/30/2022 1:44 PM CDT Plan of Treatment Health Maintenance Due Date Last Done Comments Cervical Cancer Screening 1980 HIV Screening 1980 Hepatitis C Screening 1980 Mammogram 1980 Hepatitis B Vaccines (3 of 10/01/2010 05/03/2010, 0, 3 - 19+ 3-dose series) 01/02/2010, Additional history exists DTaP,Tdap,and Td Vaccines 11/10/2019 11/09/2009, 10/10/1983 , (6 - Td or Tdap) 10/10/1983, Additional history exists Depression Screening 06/17/2021 (Annual PHQ-2) Influenza Vaccine (#1) 2022 04/19/2021, 04/20/2020, 04/20/2019, Additional history exists Lipid (Cholesterol) 03/28/2027 03/28/2022 Screening COVID-19 Vaccine Completed 03/22/2022, 04/26/2021, 10/20/2020, Additional history exists Pneumococcal vaccine (0-64 Aged Out No lo nger eligible years) based on patient 's age to complete this topic Procedures Procedure Name Priority Date/Time Associated Comments Diagnosis SURGICAL PATHOLOGY Routine 03/30/2022 2:19 Result s for this PM CDT procedure are i n the results section. BACTERIAL CULTURE, SIBO Routine 03/30/2022 2:18 R esults for this PM CDT procedure are i n the results section. GASTROENTEROLOGY IMAGE Routine 03/30/2022 1:55 Re sults for this EXAM PM CDT procedure are i n the results section. UPPER GI ENDOSCOPY Routine 03/30/2022 1:51 Celiac Disease Resu lts for this PM CDT procedure are i n the results section. EGD Routine 03/30/2022 1:51 Celiac Disease (ESOPHAGEALGASTRODUODENO PM CDT SCOPY) HYDROGEN BREATH TEST Routine 03/28/2022 9:14 Resu lts for this AM CDT procedure are i n the results section. MG/LEMS EVALUATION, S Routine 03/28/2022 6:57 Celiac [...] procedure are i n the results section. TISSUE TRANSGLUTAMINASE Routine 03/28/2022 6:57 Celiac Disease Results for this (TTG) AB, IGA, S AM CDT procedure a re in the results section. SODIUM, S/P Routine 03/28/2022 [...] procedu re are in the results section. FERRITIN, S Routine 03/28/2022 [...] procedure are i n the results section. COPPER, S Routine 03/28/2022 [...] CDT procedure are in the results section. BILIRUBIN, TOT, S/P Routine 03/28/2022 6:57 Celiac Disease Res ults for this AM CDT procedure are i n the results section. ALANINE AMINOTRANSFERASE Routine 03/28/2022 6:57 Celiac Diseas e Results for this (ALT), S/P AM CDT procedure are i n the results section. ALKALINE PHOSPHATASE, Routine 03/28/2022 6:57 Celiac Disease R esults for this S/P AM CDT procedure are i n the results section. from Last 3 Months Results Surgical Pathology (03/30/2022 2:19 PM CDT) Component Value Ref Test Analysis Performed Pathologis t Range Method Time At Signature 04/03/2022 DTL 2:26 PM CDT Participated in Jania Gutiérrez, 04/03/2022 DTMark the D.O. -Pathology 2:26 PM Interpretation Fellow [...] en toto in cassette A1. ??Grossed by MBB. Workup B: ??Received in formalin labeled with [...] reagent. Its performance characteristics were determined by [facility] in a manner consistent with CLIA requirements. [...] attachment that is no t available. Jaiden GabrielB.S. LAB SURG PATH ORDERABLES Performing Organization Address City/[facility]/ZIP Code Phon e Number [facility] - [address] Bacterial Culture, SIBO (03/30/2022 2:18 PM CDT) [facility] gist Method Time Signature Bacterial Total intestinal microbiota recovered, 1,000-10,000 cf u/mL 04/01/2022 DT Culture, SIBO Aerobic bacteria recovered, 1,000-10,000 cfu/mL 7:43 AM CDT No anaerobic bacteria recovered. Specimen (Source) Anatomical Collection Method Collection Time Re ceived Time Location / / Volume Laterality Aspirate 03/30/2022 2:18 PM (Duodenum) CDT Jaiden RgBMichelleB.S. LAB MICROBIOLOGY - GENERAL ORDERABLES Performing Organization Address City/[facility]/ZIP [facility] Phon e Number [facility] - [id number] [place] [address] Upper GI endoscopy-Gastroenterology Image Exam (03/30/2022 1:55 [...] Code Phon e Number IIMS IIMS NA Upper GI Endoscopy (03/30/2022 1:51 PM CDT) Specimen (Source) Anatomical Collection Method Collection Time Re ceived Time Location / / Volume Laterality 03/30/2022 1:51 PM CDT Impressions [facility] - 03/30/2022 2:35 PM CDT Post-op Diagnoses: ? - Z-line regular, 39 cm from the incisors. ? - Normal esophagus. ? - Normal stomach. Biopsied. ? - Flattened mucosa was found in t he duodenum, consistent with celiac ? disease. Biopsied. ? - Fluid aspiration was performed. Narrative [facility] - 03/30/2022 2:35 PM CDT Gonda 9 [...] e Number [employer] NA Hydrogen Breath Test (03/28/2022 9:14 AM CDT) [facility] Method Time Signature Hydrogen Lactose 04/02/2022 [...] Minute: none 120 Minute: none Rolando Prater [id number] ----PREVIOUSLY REPORTED ---- Positive breath test for [...] Minute: none 120 Minute: none Dennis Logan [id number] (Reported 03/28/2022 11:22) Specimen Anatomical Collection Method Collection Time Receive d Time (Source) Location / / Volume Laterality Breath 03/28/2022 9:14 AM 9:14 CDT AM CDT Nazario Live M.D. LAB BODY FLUIDS AND STOOLS O RDERABLES Performing Organization Address City/[facility] Phon e Number [facility] - [address] [place], [place] [address] [facility] [place] [address] [facility] [address] [facility] Myasthenia Gravis (MG)/Lambert-Eaton Myasthenic Syndrome (LEMS) Evaluation [...] and its performa nce characteristics determined by [facility] in a manner consistent with CLIA requirements. This test has not been cleared or approved by the [place] Jeann[place] d and Drug Administration. P/Q-Type Calcium Channel Ab 0.00 <=0.02 nmol/L 03/29/20 22 1:47 PM CDT DTL Comment: ----ADDITIONAL INFORMATION---- This test was developed and its performa nce characteristics determined by [facility] in a manner consistent with CLIA requirements. [...] LAB BLOOD NON ADD-ON Performing Organization Address City/[facility] Phon e Number [facility] - [address] [place], [place] [address] [facility] [place] [address] [facility] [address] [facility] Muscle-Specific Kinase (MuSK) Autoantibody (03/28/2022 6:57 AM CDT) athologist Signature MuSK 0.00 0.00 - 0.02 03/30/2022 DT Autoantibody, S nmol/L 9:47 AM CDT Comment: ----ADDITIONAL INFORMATION---- This test was developed using an analyte specific reagent. Its performance characteristics were determined by [facility] in a manner consistent with CLIA requirements. [...] M.D. LAB BLOOD ADD-ON Performing Organization Address [facility] Phon e Number [place] [address]-[facility] [address] Copper (03/28/2022 6:57 AM CDT) athologist Signature Copper, S 107 77 - 206 03/28/2022 2:54 [facility] mcg/dL PM CDT Comment: ----ADDITIONAL INFORMATION---- This test was developed and its performa nce characteristics determined by [facility] in a manner consistent with CLIA requirements. This test has not been cleared or approved by the [place] Je[place] d and Drug Administration. Specimen Anatomical Collection Method Collection Time Receive d Time (Source) Location / / Volume Laterality Blood (Blood, 03/28/2022 6:57 AM 03/28/20 Venous) CDT 10:09 AM CDT Mary Chan M.D. LAB BLOOD NON ADD-ON Performing Organization Address City/[facility] Phon e Number [facility] [address] [place], [place] [address] [place], [place] [id number] [place] [address] [place] Gliadin (Deamidated) Antibodies Evaluation, IgG and IgA (03/28/2022 6:57 AM CDT) athologist Signature Gliadin(Deamida <10.0 <20.0 03/28/2022 [facility] jorge) Ab, IgA, S (Negative) 8:53 PM CDT U Gliadin(Deamida <10.0 <20.0 03/28/2022 [facility] jorge) Ab, IgG, S (Negative) 8:53 PM CDT U Specimen Anatomical Collection Method Collection Time Receive d Time (Source) Location / / Volume Laterality Blood (Blood, 03/28/2022 6:57 AM 03/28/20 9:36 Venous) CDT AM CDT Mary Chan M.D. LAB BLOOD ADD-ON Performing Organization Address [facility] Phon e Number [address] [place] [address] [place] tTG (Tissue Transglutaminase), Antibody, IgA (03/28/2022 6:57 AM CDT) [facility] gist Method Time Signature Tissue <1.2 <4.0 03/28/2022 [facility] Transglutaminase Ab, (Negative 4:22 PM CDT IgA, S ) U/mL Specimen Anatomical Collection Method Collection Time Receive d Time (Source) Location / / Volume Laterality Blood (Blood, 03/28/2022 6:57 AM 03/28/20 22 9:36 Venous) CDT AM CDT Mary Chan M.D. LAB BLOOD ADD-ON Performing Organization Address City/[facility] Phon e Number [address] [place] [address] [place] Zinc (03/28/2022 6:57 AM CDT) athologist Signature Zinc, S 67 60 - 106 03/28/2022 2:54 [facility] mcg/dL PM CDT Comment: ----ADDITIONAL INFORMATION---- This test was developed and its performa nce characteristics determined by [facility] in a manner consistent with CLIA requirements. This test has not been cleared or approved by the [place]. Jeann[place] d and Drug Administration. Specimen Anatomical Collection Method Collection Time Receive d Time (Source) Location / / Volume Laterality Blood (Blood, 03/28/2022 6:57 AM 03/28/20 22 Venous) CDT 10:09 AM CDT Mary Chan M.D. LAB BLOOD NON ADD-ON Performing Organization Address City/State/ZIP Code Phon e Number [facility] [address] [place], [place] [address] [place] [address] [place] CBC with Differential, Blood (03/28/2022 6:57 AM CDT) P athologist Signature Hemoglobin 14.2 11.6 - 03/28/2022 DTL 15.0 [...] Organization Address City/State/ZIP Code Phon e Number [facility] - [address] [place], [place] [address] [facility] [place] [address] [facility] [address] BUN (Blood Urea Nitrogen) (03/28/2022 6:57 AM [...] Organization Address City/State/ZIP Code Phon e Number [facility] - [address] [place], [place] [address] [facility] [place] [address] [facility] [address] ALT (Alanine Aminotransferase) (03/28/2022 6:57 AM CDT) [...] Organization Address City/State/ZIP Code Phon e Number [facility] - [address] [place], [place] [address] [facility] [place] [address] [facility] [address] [facility] Sodium (03/28/2022 6:57 AM CDT) P athologist Signature Sodium, S 140 135 - 145 03/28/2022 7:58 DTL mmol/L AM CDT Specimen Anatomical Collection Method Collection Time Receive d Time (Source) Location / / Volume Laterality Blood (Blood, 03/28/2022 6:57 AM 03/28/20 7:38 Venous) CDT AM CDT Mary Chan M.D. LAB BLOOD ADD-ON Performing Organization Address City/[facility] Code Phon e Number [facility] - [address] [place], [place] [address] [facility] [place] [address] Laboratories-[facility] [address] Electrophoresis, Protein (03/28/2022 6:57 [...] M.D. LAB BLOOD ADD-ON Performing Organization Address City/[facility] Code Phon e Number [facility] [address] [place], [place] [address] [place] [address] [facility] [address] [place] Potassium (03/28/2022 6:57 AM CDT) P athologist Signature Potassium, S 4.1 3.6 - 5.2 03/28/2022 DTL mmol/L 7:58 AM CDT Specimen Anatomical Collection Method Collection Time Receive d Time (Source) Location / / Volume Laterality Blood (Blood, 03/28/2022 6:57 AM 03/28/20 7:38 Venous) CDT AM CDT Mary Chan M.D. LAB BLOOD ADD-ON Performing Organization Address City/[facility] Phon e Number [facility] - [address] [place], [place] [address] [place] [address] Alkaline Phosphatase (03/28/2022 6:57 AM CDT) P athologist Signature Alkaline 51 35 - 104 03/28/2022 DTL Phosphatase, S U/L 7:58 AM CDT Specimen Anatomical Collection Method Collection Time Receive d Time (Source) Location / / Volume Laterality Blood (Blood, 03/28/2022 6:57 AM 03/28/20 7:38 Venous) CDT AM CDT Mary Chan M.D. LAB BLOOD ADD-ON Performing Organization Address City/State/[facility] Code Phon e Number [facility] - [address] [place], [place] [address] [facility] [place] [address] LD (Lactate Dehydrogenase) (03/28/2022 6:57 AM [...] LAB BLOOD NON ADD-ON Performing Organization Address City/[facility] Phon e Number [facility] - [address] [place], [place] [address] [place] [id number] [place] [address] Glucose, Fasting (03/28/2022 6:57 AM CDT) athologist [facility] Glucose, P 85 70 - 100 03/28/2022 DTL mg/dL 7:55 AM CDT Last Intake 10 hr 03/28/2022 DTL 7:38 AM CDT Specimen Anatomical Collection Method Collection Time Receive d Time (Source) Location / / Volume Laterality Blood (Blood, 03/28/2022 6:57 AM 03/28/20 22 7:38 Venous) CDT AM CDT Mary Chan M.D. LAB BLOOD NON ADD-ON Performing Organization Address City/[facility] Phon e Number [facility] - [id number] [place] [address] Ferritin (03/28/2022 6:57 AM CDT) [facility] Ferritin, S 55 11 - 307 03/28/2022 DTL mcg/L 8:25 AM CDT Specimen Anatomical Collection Method Collection Time Receive d Time (Source) Location / / Volume Laterality Blood (Blood, 03/28/2022 6:57 AM 03/28/20 22 7:38 Venous) CDT AM CDT Mary Chan M.D. LAB BLOOD ADD-ON Performing Organization Address City/[facility] Phon e Number [facility] - [address] [place], [place] [address] [place], [place] [id number] [place] [address] Vitamin B12 Assay (03/28/2022 6:57 AM CDT) athologist [facility] Vitamin B12 358 815 - 914 03/28/2022 DTL Assay, S ng/L 8:50 [...] M.D. LAB BLOOD ADD-ON Performing Organization Address City/[facility] Phon e Number [facility] - [address] [place], [place] [address] [facility] [place] [address] Creatinine with Estimated GFR (03/28/2022 6:57 AM [...] M.D. LAB BLOOD ADD-ON Performing Organization Address City/[facility] Phon e Number [facility] - [address] [place], [place] [address] [facility] [place] [address] Cholesterol, Total (03/28/2022 6:57 AM CDT) athologist Signature Cholesterol, 164 mg/dL 03/28/2022 DTL Total 7:58 AM CDT Comment: ----REFERENCE VALUE---- Desirable: < 200 mg/dL Borderline High: 200 - 239 mg/dL High: > or = 240 mg/dL Specimen Anatomical Collection Method Collection Time Receive d Time (Source) Location / / Volume Laterality Blood (Blood, 03/28/2022 6:57 AM 03/28/20 7:38 Venous) CDT AM CDT Mary Chan M.D. LAB BLOOD ADD-ON Performing Organization Address City/[facility] Phon e Number [facility] - [address] [place], [place] [address] 200 [facility] Chloride (03/28/2022 6:57 AM CDT) athologist Signature Chloride, S 104 98 - 107 03/28/2022 DTL mmol/L 7:58 AM CDT Specimen Anatomical Collection Method Collection Time Receive d Time (Source) Location / / Volume Laterality Blood (Blood, 03/28/2022 6:57 AM 03/28/20 7:38 Venous) CDT AM CDT Mary Chan M.D. LAB BLOOD ADD-ON Performing Organization Address City/[facility] Phon e Number [facility] - 200 [place] [address] Calcium, Total (03/28/2022 6:57 AM CDT) athologist Signature Calcium, Total, 9.1 8.6 - 10.0 03/28/2022 DTL S mg/dL 7:58 AM CDT Specimen Anatomical Collection Method Collection Time Receive d Time (Source) Location / / Volume Laterality Blood (Blood, 03/28/2022 6:57 AM 03/28/20 7:38 Venous) CDT AM CDT Mary Chan M.D. LAB BLOOD ADD-ON Performing Organization Address City/State/ZIP Code Phon e Number [facility] - [address] [place], [place] [address] [place] [address] [address] [facility] Bilirubin, Total (03/28/2022 6:57 AM CDT) P athologist Signature Bilirubin, 0.6 <=1.2 mg/dL 03/28/2022 DTL Total, S 7:58 AM CDT Specimen Anatomical Collection Method Collection Time Receive d Time (Source) Location / / Volume Laterality Blood (Blood, 03/28/2022 6:57 AM 03/28/20 7:38 Venous) CDT AM CDT Mary Chan M.D. LAB BLOOD ADD-ON Performing Organization Address City/State/ZIP Code Phon e Number [facility] - [address] [place], [place] [address] [facility] [place] [address] Laboratories-[facility] [address] from Last 3 Months Insurance Payer Benefit Plan / Subscriber ID Effective Dates Phone Addre ss Type Group MEDICA MEDICA IFB [id number] 2022-Present [address] [place] [address]
--- OUTSIDE RECORDS SUMMARY | 2022-05-15 15:23 | XMS_ITS | Encounter Summary ---
:1980 Author Organization [facility] Address [address] [place] [address] Care Team Providers Name Role Phone Unavailable Primary Care Provider Unavailable Encounter Details Date Type Department Care Team Description 03/30/2022 Anesthesia Event Division of Gastroenterology Cary James, in [facility] TIN CUTTER, CALL BOX WIRER [address] [place] [address] [place], [place] [phone] Anesthesia Record Procedure Summary Procedure Name Responsible Anesthesia Start Anesthesia Stop Time Anesthesiologist Time EGD Ben James, TIN CUTTER, CALL BOX WIRER 03/30/22 1401 03/30 1428 (ESOPHAGEALGASTRODU ODENOSCOPY) Events Date Time Event Comment 03/30/2022 1401 An Start Machine/Equipmen t Checked Infection Precautions Foll owed Procedure/Site Verified NPO Sta tus Verified Supine Standard ASA Mon itors Applied 1418 Proc Start 1422 Turnover to Proceduralist 1426 Proc Fin 1427 Turnover to ANE Staff 1428 an stop data 1428 An End I completed my h andoff to the receiving staff during [facility] 1. Identified the patient 2. Ident ified the responsible provider 3. Revi ewed the pertinent medical history 4. Discu ssed the surgical course 5. Reviewed intra-o p anesthesia management and issues during an esthesia 6. Set expectations for post-procedure period 7. Allowed opportun ity for questions and acknowledgement of understanding. Name Total lidocaine 2% (mg) injection 60 mg propofol 10 mg/mL injection 50 mg propofol 10 mg/mL infusion 84.51 mg ondansetron PF 4 mg/2 mL injection 4 mg Lactated Ringers Free Drip 300 mL Agents No agents on file. Blood No blood administrations on file. Lines, Drains, and Airways Type Details Placement Removal Peripheral IV Placement Date: 03/30/22; 03/30/22 1409 by 03/30 1444 by Placement Time: 1409; Yanci Forman Hodge, Deanna R, R.N. Catheter Size: 22 G; M.S.N., R.N. Orientation: Right; Location: Forearm; Site Prep: Chlorhexidine (Preferred); Technique: Anatomical landmarks; Inserted by: Nazario Alfaro; Insertion Attempts: 2; Removal Date: 03/30/22; Removal Time: 144; Removal Reason: Patient discharged documented in this encounter Social History Tobacco Use Types Packs/Day Years [...] or relatives? How often do you attend rastafari or restoration Never 03/25/2022 services? Do you belong to any clubs or organizations Yes 03/25/2022 such as rastafari groups, unions, fraternal or athletic groups, or [...] level of school Master's degree (e.g., Aroldo Townsend MS, 03/25/2022 you have completed or the highest Alli, MEd, TAPPER BIT, MARVIN) degree you have received? Sex Assigned at Date Recorded Female 03/25/2022 11:18 AM CDT documented as of this encounter OR Notes Anesthesia Postprocedure Evaluation - Ben James APRN, CRNA - 03/30/2022 3:00 PM CDT Patient: Landy Pugh Procedure Summary Date: 03/30/22 Room / Location: Division of Gastroenterology in [place], [place] Anesthesia Start: 1401 Anesthesia Stop: 1428 Procedure: EGD (ESOPHAGEALGASTRODUODENOSCOPY) Diagnosis: Celiac Disease Scheduled Providers: Jaiden Ledezma M.B.B.S. Responsible Provider: Ben James APRN, CRNA Anesthesia Type: MAC ASA Status: 2 Anesthesia Type: MAC Last vitals Vitals Value Taken Time BP 123/82 03/30/22 1445 Temp 36.4 ??C 03/30/22 1431 Pulse 63 03/30/22 1445 Resp 13 03/30/22 1445 SpO2 100 % 03/30/22 1445 Vitals shown include unvalidated device data. Please reference Vitals flowsheet for most recent vital signs. Anesthesia Post Evaluation Patient Disposition: dismissal Cardiovascular status: hemodynamics (HR & BP) acceptable Respiratory status: patent airway with spontaneous effort Temperature: normothermic Oxygen requirements: room air Level of consciousness: awake Pain score: pain adequately controlled and/or at baseline Post Op nausea/vomiting: none Hydration status: euvolemic Anesthesia Preprocedure Evaluation - Ben James APRN, CRNA - 03/30/2022 1:36 PM CDT Preprocedure Anesthesia & H&P Assessment Procedure Summary Date/Time: 03/30/22 1400 Procedure: EGD (ESOPHAGEALGASTRODUODENOSCOPY) Diagnosis: Celiac Disease [K90.0] Location: Division of Gastroenterology in [place], [place] Pertinent components of the patient's history including current problem list, medical history, surgical history, family history, social history, medications and allergies were reviewed. Present illnessand pre-op diagnosis were confirmed. The planned surgery / procedure was verified with the patient /legal guardian. The patient's general health condition remains unchanged RELEVANT COMORBID CONDITIONS No relevant active problems OBJECTIVE PHYSICAL EXAMINATION Airway (HEENT) Mallampati: I TM Distance: >3 FB Neck ROM: Full Mouth Opening: >3 cm Upper Lip Bite Test Class: I Cardiovascular Rhythm: Regular Rate: Normal Cardiovascular Assessment: cardiovascular normal Functional Capacity: >4 METS Pulmonary Pulmonary Assessment: Clear General / Constitutional Constitutional Assessment: Normal General State of Health:: healthy appearing and calm Neurological Neurologic Assessment:??alert and alert and oriented x 3 Dental Dental Assessment: dentition intact ASSESSMENT / PLAN ANESTHESIA PLAN ASA: 2 Anesthesia Plan: MAC Patient seen and allergies reviewed, anesthesia plan and risks discussed directly with patient /legal guardian or through an asl interpreter. Risks/Benefits/Alternatives of Blood transfusion discussed with patient / legal guardian, including an opportunity to ask questions and/or decline some or all transfusion therapies. The patient / legalguardian consented to the use of all blood products, as deemed medically necessary Approval to Proceed: approved for anesthesia documented in this encounter Plan of Treatment Not on filedocumented as of this encounter Visit Diagnoses Not on filedocumented in this encounter Administered Medications Inactive Administered Medications - up to 3 most recent administrations Medication Order MAR Action Action Date Dose Rate Site lactated ringers New Bag 03/30/2022 2:14 PM CDT intravenous, Continuous Infusion: Per Instructions PRN, Starting on Sat03/30/22 at 1414, Anesthesia Intra-op lidocaine (PF) (cardiac) injection Given 03/30/2022 2:14 PM CDT 60 mg intravenous, As needed, Starting on Sat03/30/22 at 1414, Anesthesia Intra-op ondansetron (PF) injection (ZOFRAN) Given 03/30/2022 2:14 PM CDT 4 mg intravenous, As needed, Starting on Sat03/30/22 at 1414, Anesthesia Intra-op propofol 10 mg/mL infusion New Bag 03/30/2022 2:14 150 mcg/kg/min 56.34 mL/hr (DIPRIVAN) PM CDT intravenous, Continuous Infusion: Per Instructions PRN, Starting on Sat03/30/22 at 1414, Anesthesia Intra-op propofoL injection (DIPRIVAN) Given 03/30/2022 2:14 PM CDT 50 mg intravenous, As needed, Starting on Sat03/30/22 at 1414, Anesthesia Intra-op documented in this encounter
--- OUTSIDE RECORDS SUMMARY | 2022-05-15 15:24 | XMS_ITS | Encounter Summary ---
:1980 Author Organization [facility] Address [address] [place] [address] Care Team Providers Name Role Phone Unavailable Primary Care Provider Unavailable Reason for Referral Outpatient (Routine) - Pending Review Specialty Diagnoses / Procedures Referred By Contact Refer red To Contact Diagnoses Celiac Disease Mary Chan M.D. [facility] Procedures EGD (EsophagealGastroDuodenoscopy) [address] [place], [place] [phone] Referral ID Status Reason Start Date Expiration Date Visits V isits Requested Authorized [id number] Pending 03/16/2022 03/16/2023 1 1 Review Encounter Details Date Type Department Care Team Description 03/15/2022 Clinical Communication Division of Prescheduling, Gastroenterology in [place], [place] [address] [place] [address] Social History Tobacco Use Types Packs/Day Years [...] or relatives? How often do you attend evangelical or zoroastrianism Never 03/25/2022 services? Do you belong to any clubs or organizations Yes 03/25/2022 such as evangelical groups, unions, fraternal or athletic groups, or [...] place to sleep or slept in a penitentiary (including now)? Sex Assigned at Date Recorded Female 03/25/2022 11:18 AM CDT documented as of this encounter Plan of Treatment Not on filedocumented as of this encounter Results Zinc (03/28/2022 6:57 AM CDT) athologist Signature Zinc, S 67 60 - 106 03/28/2022 2:54 SDSC mcg/dL PM CDT Comment: ----ADDITIONAL INFORMATION---- This test was developed and its performa nce characteristics determined by [facility] in a manner consistent with CLIA requirements. [...] City/State/ZIP Code Phon e Number [facility] [address] [place], [place] [address] [address] [facility] [address] [place] Vitamin B12 Assay (03/28/2022 6:57 AM CDT) athologist Signature Vitamin B12 358 821 - 725 03/28/2022 DTL Assay, S ng/L 8:50 AM [...] M.D. LAB BLOOD ADD-ON Performing Organization Address City/[facility]/ZIP Code Phon e Number [place] [address] [address] [place] [address] [address] [address] [address] [facility] tTG (Tissue Transglutaminase), Antibody, IgA (03/28/2022 6:57 AM CDT) Patholo gist Method Time Signature Tissue <1.2 <4.0 03/28/2022 [facility] Transglutaminase Ab, (Negative 4:22 PM CDT IgA, S ) U/mL Specimen Anatomical Collection Method Collection Time Receive d Time (Source) Location / / Volume Laterality Blood (Blood, 03/28/2022 6:57 AM 03/28/20 9:36 Venous) CDT AM CDT Mary Chan M.D. LAB BLOOD ADD-ON Performing Organization Address City/[facility]/ZIP Code Phon e Number [facility] [address] [place], [place] [address] [place] [address] [place] Sodium (03/28/2022 6:57 AM CDT) P athologist Signature Sodium, S 140 135 - 145 03/28/2022 7:58 DTL mmol/L AM CDT Specimen Anatomical Collection Method Collection Time Receive d Time (Source) Location / / Volume Laterality Blood (Blood, 03/28/2022 6:57 AM 03/28/20 7:38 Venous) CDT AM CDT Mary Chan M.D. LAB BLOOD ADD-ON Performing Organization Address City/[facility]/ZIP Code Phon e Number [place] [address] [place], [place] [address] [place] [address] [facility] [address] [facility] Potassium (03/28/2022 6:57 AM CDT) P athologist Signature Potassium, S 4.1 3.6 - 5.2 03/28/2022 DTL mmol/L 7:58 AM CDT Specimen Anatomical Collection Method Collection Time Receive d Time (Source) Location / / Volume Laterality Blood (Blood, 03/28/2022 6:57 AM 03/28/20 7:38 Venous) CDT AM CDT Mary Chan M.D. LAB BLOOD ADD-ON Performing Organization Address City/[facility] Phon e Number [facility] - [address] [place], [place] [address] [place] [address] [facility] LD (Lactate Dehydrogenase) (03/28/2022 6:57 AM [...] LAB BLOOD NON ADD-ON Performing Organization Address City/State/[facility] Code Phon e Number [facility] - [address] [place], [place] [address] [place] [address] Glucose, Fasting (03/28/2022 6:57 AM CDT) P athologist Signature Glucose, P 85 70 - 100 03/28/2022 DTL mg/dL 7:55 AM CDT Last Intake 10 hr 03/28/2022 DTL 7:38 AM CDT Specimen Anatomical Collection Method Collection Time Receive d Time (Source) Location / / Volume Laterality Blood (Blood, 03/28/2022 6:57 AM 10/12/20 22 7:38 Venous) CDT AM CDT Mary Chan M.D. LAB BLOOD NON ADD-ON Performing Organization Address City/State/ZIP Code Phon e Number [facility] - [address] [place], [place] [address] [place], [place] [phone] [place] [address] [address] [facility] Gliadin (Deamidated) Antibodies Evaluation, IgG and IgA (03/28/2022 6:57 AM CDT) athologist Signature Gliadin(Deamida <10.0 <20.0 03/28/2022 [facility] jorge) Ab, IgA, S (Negative) 8:53 PM CDT U Gliadin(Deamida <10.0 <20.0 03/28/2022 [facility] jorge) Ab, IgG, S (Negative) 8:53 PM CDT U Specimen Anatomical Collection Method Collection Time Receive d Time (Source) Location / / Volume Laterality Blood (Blood, 03/28/2022 6:57 AM 03/28/20 22 9:36 Venous) CDT AM CDT Mary Chan M.D. LAB BLOOD ADD-ON Performing Organization Address City/State/ZIP Code Phon e Number [facility] [address] [place], [place] [address] [place] [address] [place] Ferritin (03/28/2022 6:57 AM CDT) athologist Signature Ferritin, S 55 11 - 307 03/28/2022 DTL mcg/L 8:25 AM CDT Specimen Anatomical Collection Method Collection Time Receive d Time (Source) Location / / Volume Laterality Blood (Blood, 03/28/2022 6:57 AM 03/28/20 22 7:38 Venous) CDT AM CDT Mary Chan M.D. LAB BLOOD ADD-ON Performing Organization Address City/State/ZIP Code Phon e Number [facility] - [address] [place], [place] [address] [place] [address] [facility] [address] [facility] Electrophoresis, Protein (03/28/2022 6:57 AM CDT) Patholo [...] M.D. LAB BLOOD ADD-ON Performing Organization Address City/State/[facility] Code Phon e Number [facility] [address] [place], [place] [address] [place] [address] [place] Creatinine with Estimated GFR (03/28/2022 6:57 AM CDT) P athologist Signature Creatinine 0.85 0.59 - 03/28/2022 [...] City/State/ZIP Code Phon e Number [facility] - [address] [place], [place] [address] [place] [address] [facility] [address] Copper (03/28/2022 6:57 AM CDT) athologist Signature Copper, S 107 77 - 206 03/28/2022 2:54 [facility] mcg/dL PM CDT Comment: ----ADDITIONAL INFORMATION---- This test was developed and its performa nce characteristics determined by [facility] in a manner consistent with CLIA requirements. This test has not been cleared or approved by the [place]. Je[place] d and Drug Administration. Specimen Anatomical Collection Method Collection Time Receive d Time (Source) Location / / Volume Laterality Blood (Blood, 03/28/2022 6:57 AM 03/28/20 Venous) CDT 10:09 AM CDT Mary Chan M.D. LAB BLOOD NON ADD-ON Performing Organization Address City/[facility]/ZIP Code Phon e Number [facility] [address] [place], [place] [address] [facility] [place], [place] [phone] [place], [place] [address] [place] Cholesterol, Total (03/28/2022 6:57 AM CDT) athologist Signature Cholesterol, 164 mg/dL 03/28/2022 DT Total 7:58 AM CDT Comment: ----REFERENCE VALUE---- Desirable: < 200 mg/dL Borderline High: 200 - 239 mg/dL High: > or = 240 mg/dL Specimen Anatomical Collection Method Collection Time Receive d Time (Source) Location / / Volume Laterality Blood (Blood, 03/28/2022 6:57 AM 03/28/20 7:38 Venous) CDT AM CDT Mary Chan M.D. LAB BLOOD ADD-ON Performing Organization Address City/[facility]/ZIP Code Phon e Number [facility] - [address] [place], [place] [address] [place] [address] [facility] [address] Chloride (03/28/2022 6:57 AM CDT) P athologist Signature Chloride, S 104 98 - 107 03/28/2022 DTL mmol/L 7:58 AM CDT Specimen Anatomical Collection Method Collection Time Receive d Time (Source) Location / / Volume Laterality Blood (Blood, 03/28/2022 6:57 AM 03/28/20 7:38 Venous) CDT AM CDT Mary Chan M.D. LAB BLOOD ADD-ON Performing Organization Address City/State/ZIP Code Phon e Number [facility] - [address] [place], [place] [address] [facility] [place] [address] Laboratories-[facility] 200 [facility] CBC with Differential, Blood (03/28/2022 6:57 AM CDT) athologist Signature Hemoglobin 14.2 11.6 - 03/28/2022 [...] City/State/ZIP Code Phon e Number [facility] - [address] [place], [place] [address] [place] [id number] [place] [address] Calcium, Total (03/28/2022 6:57 AM CDT) P athologist Signature Calcium, Total, 9.1 8.6 - 10.0 03/28/2022 DTL S mg/dL 7:58 AM CDT Specimen Anatomical Collection Method Collection Time Receive d Time (Source) Location / / Volume Laterality Blood (Blood, 03/28/2022 6:57 AM 03/28/20 22 7:38 Venous) CDT AM CDT Mary Chan M.D. LAB BLOOD ADD-ON Performing Organization Address City/[facility]/ZIP Code Phon e Number [facility] - [address] [place], [place] [address] [place], [place] [phone] [place] [address] BUN (Blood Urea Nitrogen) (03/28/2022 6:57 AM CDT) P athologist Signature BUN (Blood Urea 11 6 - 21 03/28/2022 DTL Nitrogen), S mg/dL 7:58 AM CDT Specimen Anatomical Collection Method Collection Time Receive d Time (Source) Location / / Volume Laterality Blood (Blood, 03/28/2022 6:57 AM 03/28/20 22 7:38 Venous) CDT AM CDT Mary Chan M.D. LAB BLOOD ADD-ON Performing Organization Address City/[facility]/ZIP Code Phon e Number [facility] - [address] [address] [facility] 200 [facility] Bilirubin, Total (03/28/2022 6:57 AM CDT) P athologist Signature Bilirubin, 0.6 <=1.2 mg/dL 03/28/2022 DTL Total, S 7:58 AM CDT Specimen Anatomical Collection Method Collection Time Receive d Time (Source) Location / / Volume Laterality Blood (Blood, 03/28/2022 6:57 AM 03/28/20 7:38 Venous) CDT AM CDT Mary Chan M.D. LAB BLOOD ADD-ON Performing Organization Address City/[facility]/ZIP Code Phon e Number [facility] - [phone] [place] [address] ALT (Alanine Aminotransferase) (03/28/2022 6:57 AM CDT) [facility] gist Method Time Signature Alanine 17 7 - 45 03/28/2022 DTL Aminotransferase U/L 7:58 AM CDT (ALT), S Specimen Anatomical Collection Method Collection Time Receive d Time (Source) Location / / Volume Laterality Blood (Blood, 03/28/2022 6:57 AM 03/28/20 7:38 Venous) CDT AM CDT Mary Chan M.D. LAB BLOOD ADD-ON Performing Organization Address City/[facility]/ZIP Code Phon e Number [facility] - [address] Alkaline Phosphatase (03/28/2022 6:57 AM CDT) [...] City/State/ZIP Code Phon e Number [facility] - [address] [place], [place] [address] [facility] [address] Laboratories-[facility] [address] documented in this encounter Visit Diagnoses Diagnosis Celiac Disease - Primary documented in this encounter
--- OUTSIDE RECORDS SUMMARY | 2022-05-15 15:24 | XMS_ITS | Encounter Summary ---
:1980 Author Organization [facility] Address [address] [place] [address] Care Team Providers Name Role Phone Unavailable Primary Care Provider Unavailable Encounter Details Date Type Department Care Team Description 08/14/2002 Hospital Encounter [facility] Provider, Anjel holloway Social History Tobacco Use Types Packs/Day Years Used Date Smoking Tobacco: Never Assessed Alcohol Habits Answer Date Recorded How often [...] or relatives? How often do you attend pentecostal or muslim Never 03/25/2022 services? Do you belong to any clubs or organizations Yes 03/25/2022 such as pentecostal groups, unions, fraternal or athletic groups, or [...] place to sleep or slept in a long term (including now)? Sex Assigned at Date Recorded Female 03/25/2022 11:18 AM CDT documented as of this encounter Plan of Treatment Not on filedocumented as of this encounter Visit Diagnoses Not on filedocumented in this encounter
--- OUTSIDE RECORDS SUMMARY | 2022-05-15 15:24 | XMS_ITS | Encounter Summary ---
:1980 Author Organization [facility] Address [address] [place] [address] Care Team Providers Name Role Phone Unavailable Primary Care Provider Unavailable Encounter Details Date Type Department Care Team Description 08/01/2000 Hospital Encounter [facility] Gilmer Germain M.D. Social History Tobacco Use Types Packs/Day Years [...] or relatives? How often do you attend islam or mosque Never 03/25/2022 services? Do you belong to any clubs or organizations Yes 03/25/2022 such as islam groups, unions, fraternal or athletic groups, or [...] slept in a care home (including now)? Sex Assigned at Date Recorded Female 03/25/2022 11:18 AM CDT documented as of this encounter Plan of Treatment Not on filedocumented as of this encounter Visit Diagnoses Not on filedocumented in this encounter
--- OUTSIDE RECORDS SUMMARY | 2022-05-15 15:24 | XMS_ITS | Encounter Summary ---
:1980 Author Organization [facility] Address [address] [place] [address] Care Team Providers Name Role Phone Unavailable Primary Care Provider Unavailable Encounter Details Date Type Department Care Team Description 08/06/2000 Hospital Encounter [facility] Chapin Aayla M.D. [address] [place], [place] [address] (Wo rk) Social History Tobacco Use Types Packs/Day Years [...] or relatives? How often do you attend scientology or druze Never 03/25/2022 services? Do you belong to any clubs or organizations Yes 03/25/2022 such as scientology groups, unions, fraternal or athletic groups, or [...]
--- OUTSIDE RECORDS SUMMARY | 2022-05-15 15:24 | XMS_ITS | Encounter Summary ---
:1980 Author Organization [facility] Address [address] [place] [address] Care Team Providers Name Role Phone Unavailable Primary Care Provider Unavailable Encounter Details Date Type Department Care Team Description 10/01/2002 Hospital Encounter [facility] Dariel Varma M.D. [address] [place] [address] (Wo rk) Social History Tobacco Use Types [...] How often do you attend pentecostal or mu-ism Never 03/25/2022 services? Do you belong to [...] place to sleep or slept in a long-term (including now)? Sex Assigned at Date Recorded Female 03/25/2022 11:18 AM CDT documented as of this encounter Plan of Treatment Not on filedocumented as of this encounter Visit Diagnoses Not on filedocumented in this encounter
--- OUTSIDE RECORDS SUMMARY | 2022-05-15 15:24 | XMS_ITS | Encounter Summary ---
:1980 Author Organization [facility] Address [address] [place] [address] Care Team Providers Name Role Phone Unavailable Primary Care Provider Unavailable Encounter Details Date Type Department Care Team Description 07/15/2000 Hospital Encounter [facility] Shamir Coughlin W, P.A. [address] [place], [place] [id number] (Wo rk) Social History Tobacco Use Types [...] How often do you attend mandaeism or mormon Never 03/25/2022 services? Do you belong to [...] place to sleep or slept in a intermediate (including now)? Sex Assigned at Date Recorded Female 03/25/2022 11:18 AM CDT documented as of this encounter Plan of Treatment Not on filedocumented as of this encounter Visit Diagnoses Not on filedocumented in this encounter
--- OUTSIDE RECORDS SUMMARY | 2022-05-15 15:24 | XMS_ITS | Encounter Summary ---
:1980 Author Organization [facility] Address [address] [place] [address] Care Team Providers Name Role Phone Unavailable Primary Care Provider Unavailable Encounter Details Date Type Department Care Team Description 12/26/2013 Hospital Encounter HX [facility] Jessica Salinas M.D. Social History Tobacco Use Types Packs/Day [...] or relatives? How often do you attend hindu or scientology Never 03/25/2022 services? Do you belong to any clubs or organizations Yes 03/25/2022 such as hindu groups, unions, fraternal or athletic groups, or [...] place to sleep or slept in a senior living (including now)? Sex Assigned at Date Recorded Female 03/25/2022 11:18 AM CDT documented as of this encounter Last Filed Vital Signs Vital Sign Reading Time Taken Comments Blood Pressure 116/74 12/26/2013 3:57 PM CDT Pulse 80 12/26/2013 3:57 PM CDT Temperature - - Respiratory Rate 16 12/26/2013 3:57 PM CDT Oxygen Saturation - - Inhaled Oxygen Concentration - - Weight 65.1 kg (143 lb 8.3 oz) 12/26/2013 3:57 PM CDT Height - - Body Mass Index - - documented in this encounter Progress Notes Ranjit Salinas M.D. - 12/26/2013 3:17 PM CDT [id number] CHIEF COMPLAINT/REASON FOR VISIT Urologic symptoms. HISTORY OF PRESENT ILLNESS This 33-year-old female presents believing that she may well have a urinary tract infection with frequency, urgency and a bit of gross hematuria. She denies any associated back pain or temp. No other acute symptomatic concerns are voiced. SYSTEMS REVIEW No other current acute HEENT, cardiorespiratory, GI or positive. MEDICATIONS As per EMR. VITAL SIGNS As charted. PHYSICAL EXAMINATION GENERAL: Healthy-appearing female, in no acute distress. CARDIOVASCULAR: Regular. LUNGS: Clear. SPINE: No percussive CVA tenderness. ABDOMEN: Also soft and nontender. IMPRESSION/REPORT/PLAN Urologic symptoms with urinary tract infection and associated hematuria evident. DIAGNOSTICS: Urinalysis as documented. Urine culture is pending. Patient will be a candidate for recheck urinalysis midcycle following the treatment course. THERAPEUTIC: Awaiting culture results. [place] Cipro as per EMR. Fluid intake is encouraged, whichmay include cranberry juice. PATIENT EDUCATION: Reviewed the above. Follow up as advised. Ranjit Salinas M.D./luci Electronically Signed By: RANJIT SALINAS MD On: 12/27/2013 05:06 PM Source: [facility] [id number] Document Id: [id number] documented in this encounter Miscellaneous Notes Miscellaneous - Malik Roy - 12/28/2013 8:27 AM CDT Results Notification Document Contains Addenda Addendum by COMFORT BILLS on 28 December 2013 14:51:17 CDT Pt notifed From: MALIK ROY V PAC Sent: 12/28/2013 08:27:30 CDT ! Show up: 12/28/2013 08:27:30 CDT Subject: Results Notification Actions: Notify patient of results Reminder Comments: ua with e-coli, susceptible to cipro, continue treatment, see PCP if not better Results: Date Result Type Ind Result Name MBO POS Culture Urine Source: [facility] POWERCHART Document Id: [id number] Miscellaneous - Ranjit Salinas M.D. - 12/26/2013 4:29 PM CDT Ambulatory Patient Summary [facility] [address] [place] [id number] Visit Information Name: HARVEY SARAVIA [facility] Number: [id number] Current Date: 12/26/2013 16:29:39 Physicians Attending Provider: RANJIT SALINAS MD Primary Care Provider: PCP, NICOLE DAVILAMAGALI JULES has been given the following list of follow-up instructions, medication list, and patient education materials: Follow-up Instructions Your Medications Here is a list of your medications. It is important to take your medications as directed. Use a pillbox or chart to help remind you to take your medications. Please let your doctor or nurse know if you have problems taking your medications. Medication/Strength How to Take Indications/Special Instructions/Comments/Notes for Patient Medication Changes/Routing ciprofloxacin (Cipro 500 mg oral tablet) 1 Tablet(s), Oral, two times a day x 7 day(s) New Routed [address] [id number] Stop Taking the Following Medications: Medication list as of 12-26-13 16:29 Attention: If you have any medications at home that are not on this list, DO NOT take them until youcontact your provider for clarification. Give a copy of your medication list to your primary care provider. Update your medication list any time medications or doses are changed and carry your medication list at all times in case of emergency. Electronically Signed By: RANJIT SALINAS MD Signed On:26-DEC-2013 16:29:37 Your Allergies & Intolerances Substance Reaction Symptoms Category Comments Macrobid throat closing Drug Your Problem List Problem Status Onset Comments No Problems found Your Upcoming Appointments Date Time Location Reason Provider No Appointments found Attention: Contact your local Clinic if further appointment detail needed. Your Goals/Additional instructions: Source: [facility] POWERCHART Document Id: [id number] Miscellaneous - Ranjit Salinas M.D. - 12/26/2013 4:29 PM CDT Ambulatory Discharge Medication List [facility] [address] [place] [address] [id number] Visit Information Name: HARVEY SARAVIA [facility] Number: [id number] Visit Date: 12/26/2013 16:29:38 Attending Provider: RANJIT SALINAS MD Primary Care Provider: PCP, NICOLE DAVILAANNA DHARA has been given the following list of medications: Your Medications It is important to take your medications as directed. Use a pill box or chart to help remind you to take your medications. Please let your doctor or nurse know if you have problems taking your medications. Medication/Strength How to Take Indications/Special Instructions/Comments/Notes for Patient Medication Changes/Routing ciprofloxacin (Cipro 500 mg oral tablet) 1 Tablet(s), Oral, two times a day x 7 day(s) [facility] [address] [place], [place] [id number] Stop Taking the Following Medications: Medication list as of 12-26-13 16:29 Attention: If you have any medications at home that are not on this list, DO NOT take them until youcontact your provider for clarification. Give a copy of your medication list to your primary care provider. Update your medication list any time medications or doses are changed and carry your medication list at all times in case of emergency. Electronically Signed By: RANJIT SALINAS MD Signed On:26-DEC-2013 16:29:37 Additional Information: Source: [facility] [employer] Document Id: [id number] Miscellaneous - Ronda Low L.P.N. 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 Intake/History Entered On: 12/26/2013 16:00 CDT Performed On: 12/26/2013 15:57 CDT by RONDA LOW Intake Chief Complaint : Pt is having pain, frequency, and granules of blood with urination Onset of Symptoms : x this am Temperature Oral : 36.5 DegC(Converted to: 97.7 DegF) Peripheral Pulse Rate : 80 /min Respiratory Rate : 16 /min Systolic Blood Pressure : 116 mmHg Diastolic Blood Pressure : 74 mmHg NIBP Mean : 88 mmHg BP Location : Right upper extremity Blood Pressure Cuff Size : Regular Actual Weight : 65.1 kg(Converted to: 143 lb 8 oz) Dosing Weight Clinic : 65.1 kg RONDA LOW - 12/26/2013 15:57 CDT General Info Information Given By : Patient Preferred Communication Mode : Verbal Languages : Yi RONDA LOW - 12/26/2013 15:57 CDT Subjective Pain Symptoms : Yes RONDA LOW - 12/26/2013 15:57 CDT Pain Pain Assessment Grid Pain 1 Location : Bladder RONDA LOW - 12/26/2013 15:57 CDT Dependent Habits Tobacco Use/Currently Using : No Smoking Status : Never smoker RONDA LOW - 12/26/2013 15:57 CDT [facility] Document Id: [id number] CDT!27 documented in this encounter Plan of Treatment Not on filedocumented as of this encounter Procedures Procedure Name Priority Date/Time Associated Comments Diagnosis BACTERIAL CULTURE, Routine 12/26/2013 4:10 PM Res ults for this AEROBIC, URINE CDT procedure are in the results section. HXUR % DYSMORPHIC Routine 12/26/2013 4:07 PM Resu lts for this RBC CDT procedure are i n the results section. URINALYSIS, Routine 12/26/2013 4:07 PM Results f or this MIDSTREAM, WITH CDT procedure ar e in CULTURE IF INDICATED the res ults section. documented in this encounter Results (ABNORMAL) Bacterial Culture, Aerobic, Urine (12/26/2013 4:10 PM CDT) Analysis Performed At Patho logist Time Signature Bacterial EC <=16 POWERCHART Culture, (POSITIVE) Aerobic, Urine HXPre GNR POWERCHART Comment: >100,000 cfu/mL Gram Negative Rods Identification and susceptibility to fol low. HXFinal EC POWERCHART Comment: >100,000 cfu/mL Escherichia col i Specimen Anatomical Collection Method Collection Time Receive d Time (Source) Location / / Volume Laterality Micro Spec 12/26/2013 4:10 PM 4 4:10 CDT PM CDT Organism Antibiotic Method Susceptibility Escherichia coli Amikacin SUSCEPTIBILITY, MICU <=16: Susc eptible (AKA MINIMUM INHIBITORY CONCENTRATION URINE)(MCG/ML) Escherichia coli Amoxicillin + SUSCEPTIBILITY, MICU <=8/4: Elissa ceptible Clavulanate (AKA MINIMUM INHIBITORY CONCENTRATION URINE)(MCG/ML) Escherichia coli Ampicillin SUSCEPTIBILITY, MICU <=8: Susce ptible (AKA MINIMUM INHIBITORY CONCENTRATION URINE)(MCG/ML) Escherichia coli Ampicillin + Sulbactam SUSCEPTIBILITY, MICU <=8 /4: Susceptible (AKA MINIMUM INHIBITORY CONCENTRATION URINE)(MCG/ML) Escherichia coli Ceftazidime/CA SUSCEPTIBILITY, MICU <=0.25: No t Reported (AKA MINIMUM INHIBITORY CONCENTRATION URINE)(MCG/ML) Escherichia coli Cefazolin SUSCEPTIBILITY, MICU <=8: Susce ptible (AKA MINIMUM INHIBITORY CONCENTRATION URINE)(MCG/ML) Escherichia coli Cefepime SUSCEPTIBILITY, MICU <=4: Susce ptible (AKA MINIMUM INHIBITORY CONCENTRATION URINE)(MCG/ML) Escherichia coli Cefotaxime SUSCEPTIBILITY, MICU <=2: Susce ptible (AKA MINIMUM INHIBITORY CONCENTRATION URINE)(MCG/ML) Escherichia coli Ceftazidime SUSCEPTIBILITY, MICU <=1: Susce ptible (AKA MINIMUM INHIBITORY CONCENTRATION URINE)(MCG/ML) Escherichia coli Ceftriaxone SUSCEPTIBILITY, MICU <=8: Susce ptible (AKA MINIMUM INHIBITORY CONCENTRATION URINE)(MCG/ML) Escherichia coli Cefuroxime SUSCEPTIBILITY, MICU <=4: Susce ptible (AKA MINIMUM INHIBITORY CONCENTRATION URINE)(MCG/ML) Escherichia coli Hx Cefotaxime/K SUSCEPTIBILITY, MICU <=0.5: Not Reported Clavulanate (AKA MINIMUM INHIBITORY CONCENTRATION URINE)(MCG/ML) Escherichia coli Ciprofloxacin SUSCEPTIBILITY, MICU <=1: Susce ptible (AKA MINIMUM INHIBITORY CONCENTRATION URINE)(MCG/ML) Escherichia coli Ertapenem SUSCEPTIBILITY, MICU <=2: Susce ptible (AKA MINIMUM INHIBITORY CONCENTRATION URINE)(MCG/ML) Escherichia coli Gentamicin SUSCEPTIBILITY, MICU <=4: Susce ptible (AKA MINIMUM INHIBITORY CONCENTRATION URINE)(MCG/ML) Escherichia coli Imipenem SUSCEPTIBILITY, MICU <=1: Susce ptible (AKA MINIMUM INHIBITORY CONCENTRATION URINE)(MCG/ML) Escherichia coli Legend SUSCEPTIBILITY, MICU Legend (AKA MINIMUM INHIBITORY CONCENTRATION URINE)(MCG/ML) Comment: S = Susceptible; I = Interme diate; R = Resistant; N/R = Not Reported; --- = Not Tested; TFG = Thymidine-dependent strain; ESBL = Extended spectrum beta- lactamase; Trent = Beta-lactamase positive; ENMANUEL = mcg/mL (mg/L); S* = Predicted susceptible interpretation; R* = Predict ed resistant interpretation; EBL? = Suspected ESBL. Confirmatory tests needed to differentiate ESBL from other beta-lactamases; IB = Inducible Beta-lactamase. Appears in plac e of Susceptible with spec ies known to possess inducible beta-lactamases. Escherichia coli Levofloxacin SUSCEPTIBILITY, MICU <=2: Susce ptible (AKA MINIMUM INHIBITORY CONCENTRATION URINE)(MCG/ML) Escherichia coli Meropenem SUSCEPTIBILITY, MICU <=1: Susce ptible (AKA MINIMUM INHIBITORY CONCENTRATION URINE)(MCG/ML) Escherichia coli Moxifloxacin SUSCEPTIBILITY, MICU <=2: Not R eported (AKA MINIMUM INHIBITORY CONCENTRATION URINE)(MCG/ML) Escherichia coli Nitrofurantoin SUSCEPTIBILITY, MICU <=32: Susc eptible (AKA MINIMUM INHIBITORY CONCENTRATION URINE)(MCG/ML) Escherichia coli Piperacillin + Tazobactam SUSCEPTIBILITY, MICU <=16: Susceptible (AKA MINIMUM INHIBITORY CONCENTRATION URINE)(MCG/ML) Escherichia coli Trimethoprim + SUSCEPTIBILITY, MICU <=2/38: Neely sceptible Sulfamethoxazole (AKA MINIMUM INHIBITORY CONCENTRATION URINE)(MCG/ML) Escherichia coli Tetracycline SUSCEPTIBILITY, MICU <=4: Susce ptible (AKA MINIMUM INHIBITORY CONCENTRATION URINE)(MCG/ML) Escherichia coli Ticarcillin + Clavulanic SUSCEPTIBILITY, MICU < =16: Susceptible Acid (AKA MINIMUM INHIBITORY CONCENTRATION URINE)(MCG/ML) Escherichia coli Tobramycin SUSCEPTIBILITY, MICU <=4: Susce ptible (AKA MINIMUM INHIBITORY CONCENTRATION URINE)(MCG/ML) Ranjit Salinas M.D. LAB MICROBIOLOGY - GENERAL O RDERABLES Performing Organization Address City/[facility]/ZIP Code Phon e Number POWERCHART HXUR % DYSMORPHIC RBC (12/26/2013 4:07 PM CDT) athologist Signature Dysmorphic RBC <=25 <=25 POWERCHART Specimen Anatomical Collection Method Collection Time Receive d Time (Source) Location / / Volume Laterality Urine 12/26/2013 4:07 PM 4 4:07 CDT PM CDT Ranjit Salinas M.D. LAB HISTORICAL ORDERS Performing Organization Address [facility] Phon e Number POWERCHART (ABNORMAL) Urinalysis, Midstream, with culture if indicated (12/26/2013 4:07 PM CDT) [facility] gist Method Time Signature HXUR WBC. 51-100 (A) HPF POWERCHART HXUR RBC. 21-30 (A) HPF POWERCHART HXUR Bacteria, Present (A) POWERCHART Squamous 31-40 HPF POWERCHART Epithelial Source Clean Void POWERCHART Urine HXUr Color STRAW POWERCHART Clarity Clear POWERCHART Glucose Negative POWERCHART HXBILIRUBIN Negative POWERCHART Ketones, QL(U) Negative POWERCHART Specific >=1.030 (A) POWERCHART Metcalfe, POCT, U pH, POCT, Urine 6.0 POWERCHART Protein, Ur, Dip Negative POWERCHART Urobilinogen 0.2 MGDL POWERCHART HXNITRITE Positive (A) POWERCHART HXBLOOD Large (A) POWERCHART Leukocyte Moderate (A) POWERCHART Esterase Specimen (Source) Anatomical Collection Method Collection Time Re ceived Time Location / / Volume Laterality Urine 12/26/2013 4:07 PM CDT Ranjit Salinas M.D. LAB URINE ORDERABLES Performing Organization Address City/State/ZIP Code Phon e Number POWERCHART documented in this encounter Visit Diagnoses Not on filedocumented in this encounter
--- OUTSIDE RECORDS SUMMARY | 2022-05-15 15:24 | XMS_ITS | Encounter Summary ---
:1980 Author Organization [facility] Address [address] [place] [address] Care Team Providers Name Role Phone Unavailable Primary Care Provider Unavailable Reason for Referral Outpatient (Routine) - Pending Review Specialty Diagnoses / Referred By Referred To Cont act Procedures Contact Gastroenterology and Diagnoses Celiac Disease Bloating Abdominal Keyla Taylor [facility] Hepatology Josefina Torrez [address] [place] [address] Referral ID Status Reason Start Date Expiration Date Visits V isits Requested Authorized [id number] Pending 03/14/2022 03/14/2023 1 1 Review Encounter Details Date Type Department Care Team Description 03/14/2022 [facility] Keyla Taylor Celiac Disease (Primary Dx); AND CLINICS Josefina Torrez Bloating Abdominal [address] [facility] [address] [place] [address] [place], [place] [phone] Social History Tobacco Use Types Packs/Day Years [...] How often do you attend pentecostal or gnosticist Never 03/25/2022 services? Do you belong to [...] for the very basics like Not h baeu at all 03/25/2022 food, housing, medical care, [...] place to sleep or slept in a alf (including now)? Sex Assigned at Date Recorded Female 03/25/2022 11:18 AM CDT documented as of this encounter Plan of Treatment Scheduled Referrals Name Type Priority Associated Order Schedule Diagnoses Gastroenterology & Outpatient Routine Celiac Diseas e Expected: Hepatology Referral Referral Bloating Abdominal (Approximate), Expires: 06/13/2023 documented as of this encounter Visit Diagnoses Diagnosis Celiac Disease - Primary Bloating Abdominal documented in this encounter
--- NOTE | 2022-05-15 15:40 | CRLHL7_ITS ---
For Patients: As a result of the Cures Act, medical imaging exams and procedure reports are released immediately into your electronic medical record. You may view this report before your referring provider. If you have questions, please contact your health care provider. BILATERAL SCREENING MAMMOGRAM WITH COMPUTER-AIDED DETECTION AND TOMOSYNTHESIS TECHNIQUE: CC and MLO views were obtained. These mammographic images have been obtained using full-field digital technique. These mammographic images were interpreted with the benefit of computer-aided detection. Breast Tomosynthesis was used in this interpretation. COMPARISON FILM: 06/13/20, 05/07/19, 04/22/18. FINDINGS: The breasts are extremely dense, which lowers the sensitivity of mammography IMPRESSION: There is no radiographic evidence for malignancy. ASSESSMENT: BI-RADS Category 1: Negative RECOMMENDATION: Routine screening mammogram in 1 year. A lay language report of this examination will be provided to the patient. Aly Dee M.D. Diagnostic/Nuclear Medicine Radiologist [email or web address] GORDON:mary anne Transcribed: 10:55 a.m. PT/Dictated by: Aly Dee MD @ 05/16/2022 8:38:00 AM (Electronically Signed)
== END 2022-05-15 15:22 | disposition home or self-care (01) ==
LOC: MAMMO 15:21
PROVIDERS: PCP Family Medicine; Visit Provider Family Medicine
DX: Z12.31 Encounter for screening mammogram for malignant neoplasm of breast (principal); R92.2 Inconclusive mammogram
CPT/HCPCS: 77063; 77067

== ENCOUNTER 2022-09-21 11:37 | Outpatient (CLI) | payer OTHER, SELFPAY | END 2022-09-21 11:38 | disposition home or self-care (01) | PROVIDERS: PCP Family Medicine; Visit Provider Family Medicine | DX: R53.83 Other fatigue (principal); M62.81 Muscle weakness (generalized); R00.2 Palpitations; Z13.6 Encounter for screening for cardiovascular disorders | CPT/HCPCS: 80053; 80061; 82306; 82550; 82607; 82728; 84443 ==

== ENCOUNTER 2022-10-19 15:07 | Outpatient (CLI) | payer OTHER, SELFPAY | END 2022-10-19 15:08 | disposition home or self-care (01) | PROVIDERS: PCP Family Medicine; Visit Provider Registered Nurse | DX: N93.9 Abnormal uterine and vaginal bleeding, unspecified (principal); R35.0 Frequency of micturition | CPT/HCPCS: 84146; 87086 ==

== ENCOUNTER 2023-02-19 06:07 | Day surgery (SDC) | payer OTHER, SELFPAY ==
[2023-02-19 06:18] VITALS: BMI 22.8
[2023-02-19 06:26] VITALS: BP 115/82; PULSE 69; RESP 16; TEMP 37.2; O2SAT 99
[2023-02-19 06:28] LABS: Ur HCG Qualitative* Negative (Negative)
[2023-02-19] MEDS: LACTATED RINGERS 1000 ML 1,000 ML 100 ML IV (06:44)
--- NOTE | 2023-02-19 07:35 | W.PM.GYNPROC ---
Procedure Note Date of procedure: 02/19/23 Pre-op diagnosis: Abnormal uterine bleeding Post-op diagnosis: same Procedure: 1. Hysteroscopy. 2. D and C. 3. Polypectomy. Anesthesia: MAC and local (Paracervical block) Complications: None. Surgeon: Geno Gonzalez MD Estimated blood loss (mL): 5 Pathology: specimen obtained, sent to pathology Condition: stable Disposition: same day Findings: Polypoid endometrial tissue arising from the posterior endometrium. Procedure Description: After obtaining informed consent, the patient was taken to the operating room where she received monitored anesthesia care. She was prepared and draped in the normal sterile fashion, in the dorsal lithotomy position. An open-sided bivalve speculum was introduced into the vagina and the cervix visualized. The anterior lip of the cervix was grasped with a single-tooth tenaculum for traction. A paracervical block was then administered using a total of 20 mL of a 50/50 mixture of 0.25% Marcaine and 1% lidocaine plain. The uterus was gently sounded. The sound could not be passed through the internal cervical os. I inserted the 5 mm hysteroscope using sterile normal saline as distending medium in to the ectocervix, and determined that the endocervical canal was severely anteflexed. The cervix was gently dilated to a #6 Hegar dilator. The hysteroscope was then advanced under direct visualization through the cervix into the uterine cavity. Sterile normal saline was used as distending medium. The uterine cavity was carefully inspected with the findings noted above. Pictures were taken for documentation purposes. The TruClear morcellator was inserted through the operating channel in the hysteroscope. The morcellator was used to remove the polypoid tissue in its entirety. The hysteroscope was then removed. The endometrial lining was then sharply curetted and additional sample obtained. The hysteroscope was removed. The tenaculum was removed. There was little bleeding from the tenaculum site where the tenaculum caused a slight tear. A single figure of X suture of 3-0 chromic was placed for hemostasis. All instruments were then removed. The patient tolerated the procedure well. Sponge, lap, needle, and instrument counts reported as correct x2. The patient was taken to the recovery room awake in a stable condition. Fluid deficit was 75 mL.
[2023-02-19] MEDS: BUPIVACAINE 0.25% 30 ML INJECTION (07:58)
[2023-02-19] MEDS: LIDOCAINE 1% MDV 20 ML INJECTION (08:26)
[2023-02-19 08:27] VITALS: BP 119/76; PULSE 696; RESP 161; TEMP 37.2; O2SAT 100
--- NOTE | 2023-02-19 08:47 | W.ANESCHARGE ---
Anesthesia Charges Start Date/Time Anesthesia Start Date: 02/19/23 Anesthesia Start Time: 07:38 Stop Date/Time Anesthesia Stop Date: 02/19/23 Anesthesia Stop Time: 08:26
[2023-02-19 08:53] VITALS: BP 112/72; PULSE 60; RESP 161; O2SAT 100
--- NOTE | 2023-02-19 09:16 | W.ANESCHARGE ---
Anesthesia Charges Start Date/Time Anesthesia Start Date: 02/19/23 Anesthesia Start Time: 07:38 Stop Date/Time Anesthesia Stop Date: 02/19/23 Anesthesia Stop Time: 08:26
== END 2023-02-19 09:25 | disposition home or self-care (01) ==
PROVIDERS: PCP Family Medicine; Visit Provider Obstetrics & Gynecology
PROC: 0UDB8ZZ Extraction of Endometrium, Via Natural or Artificial Opening Endoscopic (ICD-10-PCS; CPT 58558; principal; 2023-02-19 07:15)
DX: N93.8 Other specified abnormal uterine and vaginal bleeding (principal); N84.0 Polyp of corpus uteri
CPT/HCPCS: 58558; 00952; 81025; 88305; J0665; J1100; J1885; J2250; J2405; J2704; J3010; J7120

== ENCOUNTER 2023-04-18 07:10 | Outpatient (CLI) | payer OTHER, SELFPAY ==
--- OUTSIDE RECORDS SUMMARY | 2023-04-18 07:11 | XMS_ITS | Continuity of Care Document ---
Author Name Unknown Organization [facility] Address [address] [place] [address] Phone Care Team Providers Care Clam Dredger Name Role Phone Bakari Cortes MD Unavailable Unavailable Allergies, Adverse Reactions, Alerts Substance Reaction Status Criticality NITROFURANTOIN MACROCRYSTALLINE Active No Information nitrofurantoin Active No Informatio n Medications Medication Instructions Dosage Effective Dates (start - stop) Status Comments MULTIVITAMINS (unknown strength) Not Available - Active VITRON-C (unknown strength) Not Available - Active IBUPROFEN (unknown strength) Not Available - Active TYLENOL (unknown strength) Not Available - Active Procedures Procedure Date Office/Outpatient Visit,Est, Mod 2021 Office/Outpatient Visit,New, Mod 2021 Advance Directives Directive Yes / No Effective Date File Name No Information Encounters Encounter Description Practice Location Reason(s) For Visit Diagnoses Date Provider Providers Copied on Encounter Office/Outpa tient Visit,Est, Mod [facility], [address], [place], [place], [id number] , [place] tel: [phone] [facility] Other cervical disc displacement at C6-C7 levelOther spondylosis, lumbar region Sep-2 2 Sebastian Villegas. [facility], [address], [facility] [address], [place], [place], [id number] , [place]. tel: [phone] Referring Provider: Bakari Townsend, [facility] [address], [address], [place], [address] . tel:[phone] Office/Outpa tient Visit,New, Mod [facility], [address], [place], [place], [id number] , [place] tel: [phone] [facility] Arthrodesis statusCervicalgiaOt her idiopathic scoliosis, site unspecified 2 Sebastian Villegas. [facility], [address], [address], [place], [place], [id number] , [place]. tel: [phone] Referring Provider: Bakari Townsend, [facility] [address], [address], [place], [address] . tel:[phone] [facility], [address], [place], [place], [id number] , [place] tel: [phone] [facility] Arthrodesis status 2 Sebastian Villegas. [facility], [address], [address], [place], [place], [id number] , [place]. tel: [phone] Family History Family Member Type Diagnosis Age At Onset No Information Payers Payer name Insurance type Covered alliance party ID [place] rosales([place] [id number] [facility] [id number] Social History Type Description Quantity Date Captured Comments Alcohol Use Details Unknown Caffeine Use Details Unknown Tobacco Use Status No Information Smoking Status Former smoker Non-Smoking Tobacco Use Details : No Details Available : No Details Available Sex Female Vital Signs Date / Time: Height Weight BMI Pulse Rate Blood Pressure Temperature Respiratory Rate Body Surface Area Head Circumference Head Circ. Percentile Wt./Jovanny. Percentile BMI percentile Pulse Ox Inhaled Ox 2:40 PM 63.50 in 63.231 kg (139.40 lbs) 24.3 1 kg/m eter (2) Chief Complaint And Reason For Visit No Information Reason For Referral Reason For Referral No Information History Of Present Illness Encounter Date Complaint History Of Prese nt Illness No Information Functional Status Date Functional Assessmen t No Information Instructions Date Instruction Additional Infor mation No Information Assessments Type Assessment Date No Information Patient Care Teams Name Effective Dates (start - stop) Status Members No Information
--- NOTE | 2023-04-18 08:33 | W.ANESCHARGE ---
Anesthesia Charges Start Date/Time Anesthesia Start Date: 04/18/23 Anesthesia Start Time: 07:52 Stop Date/Time Anesthesia Stop Date: 04/18/23 Anesthesia Stop Time: 08:26
--- NOTE | 2023-04-18 08:35 | W.ANESCHARGE ---
Anesthesia Charges Start Date/Time Anesthesia Start Date: 04/18/23 Anesthesia Start Time: 07:52 Stop Date/Time Anesthesia Stop Date: 04/18/23 Anesthesia Stop Time: 08:26
== END 2023-04-18 07:11 | disposition home or self-care (01) ==
LOC: OP CLINIC 07:10
PROVIDERS: PCP Family Medicine; Visit Provider Surgery
DX: Z12.11 Encounter for screening for malignant neoplasm of colon (principal); K62.1 Rectal polyp; Z80.0 Family history of malignant neoplasm of digestive organs
CPT/HCPCS: 00811; 45385; 88305; J2704

== ENCOUNTER 2024-02-07 09:58 | Outpatient (CLI) | payer OTHER, SELFPAY ==
--- OUTSIDE RECORDS SUMMARY | 2024-02-07 10:03 | XMS_ITS | Referral Summary ---
Author Organization [facility] Address [address] [place] [address] Care Team Providers Care Mobility Developer Name Role Phone Unavailable Primary Care Provider Unavailabl e Source Comments Patient records contain information from all sites at [facility]. For routine questions regarding patient records, call [phone] during business hours, M-F 8:00 AM - 5:00 PM Central Time. Record requests for emergency care only can be directed to [phone] at any time.[facility] Allergies Active Allergy Reactions Criticality Noted Date Comments Gluten Other (see comments) 07/16/2012 Celiac disease Nitrofurantoin Hives (Reselect Reaction) 11/01/2008 Nitrofurantoin Monohyd/M-Cryst Other (see comments) 12/26/2013 Medications No known medications Immunizations Name Administration Dates Next Due DTaP (Infanrix, Tripedia) 10/10/1983,1978, 1978,1978 MMR 08/29/1993,07/09/1979 OPV 10/10/1983,1978,1978 ,1978 Social History Tobacco Use Types Packs/Day Years Used Date Smoking Tobacco: Never Smokeless Tobacco: Former Tobacco Cessation:Counseling Given: Not Answered Alcohol Use Standard Drinks/Week Comments Yes 7 (1 standard drink = 0.6 oz pur e alcohol) Humiliation, Afraid, Rape, and Kick questionnair e Answer Date Recorded Within the last year, have y ou been afraid of your partner or ex-partner? No 03/25/2022 Within the last year, have y ou been humiliated or emotionally abused in other ways by your partner or ex-partner? No Within the last year, have y ou been kicked, hit, slapped, or otherwise physically hurt by your partner or ex-partner? No 03/25/2022 Within the last year, have y ou been raped or forced to have any kind of sexual activity by your partner or ex-partner? No 03/25/2022 Social Connection and Isolat ion Panel [NHANES] Answer Date Recorded In a typical week, how many times do you talk on the phone with family, friends, or neighbors? Once a week 03/25/2022 How often do you get togethe r with friends or relatives? Once a week 03/25/2022 How often do you attend chur or catholic services? Never 03/25/2022 Do you belong to any clubs o r organizations such as religious groups, unions, fraternal or athletic groups, or school groups? Yes 03/25/2022 How often do you attend meet ings of the clubs or organizations you belong to? More than 4 times per year 03/25/2022 Are you , , di vorced, , never , or living with a partner? 03/25/2022 AUDIT-C Answer Date Recorded Q1: How often do you have a drink containing alc ohol? 2-3 times a week 03/25/2022 Q2: How many drinks containi ng alcohol do you have on a typical day when you are drinking? 1 or 2 03/25/2022 Q3: How often do you have si x or more drinks on one occasion? Never 03/25/2022 Overall Financial Resource Strain (CARDIA) Answe r Date Recorded How hard is it for you to pa y for the very basics like food, housing, medical care, and heating? Not hard at all 03/25/2022 [facility] [place] of Occupat ional Health - Occupational Stress Questionnaire Answer Date Recorded Do you feel stress - tense, restless, nervous, or anxious, or unable to sleep at night because your mind is troubled all the time - these days? Only a little 03/25/2022 Exercise Vital Sign Answer Date Recorde d On average, how many days pe r week do you engage in moderate to strenuous exercise (like a brisk walk)? 6 days 03/25/2022 On average, how many minutes do you engage in exercise at this level? 40 min 03/25/2022 Hunger Vital Sign Answer Date Recorded Within the past 12 months, y ou worried that your food would run out before you got the money to buy more. Never true 03/25/20 Within the past 12 months, t he food you bought just didn't last and you didn't have money to get more. Never true 03/25/2022 PRAPARE - Transportation Answer Date Re corded In the past 12 months, has l ack of transportation kept you from medical appointments or from getting medications? No 02/2022 In the past 12 months, has l ack of transportation kept you from meetings, work, or from getting things needed for daily living? No 03/25/2022 Housing Stability Vital Sign Answer Blayne e Recorded In the last 12 months, was t here a time when you were not able to pay the mortgage or rent on time? No 03/25/2022 In the last 12 months, how many places have you lived? 1 03/25/2022 In the last 12 months, was t here a time when you did not have a steady place to sleep or slept in a custodial (including now)? No 03/25/2022 Nutrition Answer Date Recorded Nutrition: EVOO Fat Source Yes 03/25 On average, how many serving s of fruits and vegetables do you eat per day (serving size is equal to 1 cup or approximately the size of a tennis ball)? 4-5 03/25/2022 Dental Answer Date Recorded Dental: Regular Dentist Yes 03/25/20 Employment Answer Date Recorded Employment status Employed and actively working without restrictions 03/25/2022 Education Answer Date Recorded What is the highest level of school you have completed or the highest degree you have received? Master's degree (e.g., MA, MS, Alli, MEd, FOOD SERVICE EMPLOYEE, [employer]VIN) 03/25/2022 Sex and Gender Information Value Date Recorded Sex Assigned at Female 03/25/2022 11:18 AM CDT Gender Identity Female 03/25/2022 11:18 AM CDT Sexual Orientation Straight 03/25/2022 11 :18 AM CDT Last Filed Vital Signs Vital Sign Reading Time Taken Comments Blood Pressure 123/82 03/30/2022 2:45 PM CDT Pulse 61 03/30/2022 2:45 PM CDT Temperature 36.4 ??C (97.5 ??F) 03/30/2022 2:31 PM CD T Respiratory Rate 14 03/30/2022 2:45 PM CDT Oxygen Saturation 100% 03/30/2022 2:45 PM CDT Inhaled Oxygen Concentration - - Weight 62.5 kg (137 lb 14.4 oz) 03/30/2022 1:44 PM CDT Height 161.2 cm (5' 3.47) 03/30/2022 1:44 PM CD T Body Mass Index 24.07 03/30/2022 1:44 PM CDT Plan of Treatment Not on file Procedures Procedure Name Priority Date/Time Associated Diagnosis Comments GLUCOSE, FASTING, S/P Routine 03/28/2022 6:57 AM CDT Celiac Disease CHOLESTEROL, TOTAL, S Routine 03/28/2022 6:57 AM CDT Celiac Disease from Last 3 Months or Most Recently Relevant to Health Maintenance Results * Glucose, Fasting (03/28/2022 6:57 AM CDT) Glucose, P 85 70 - 100 mg/dL 03/28/2022 7:55 AM CDT DTL Last Intake 10 hr 03/28/2022 7:38 AM CDT DTL Blood (Blood, Venous) 03/28/2022 6:57 AM CDT 03/28/2022 7:38 AM CDT Mary Chan M.D. LAB BLOOD NON ADD -ON [facility] [address] [place] [address], [facility] [address] [place] [address] * Cholesterol, Total (03/28/2022 6:57 AM CDT) Cholesterol, Total 164 mg/dL 03/28/2022 7:58 AM CDT DTL Comment: ----REFERENCE VALUE---- Desirable: < 200 mg/dL Borderline High: 200 - 239 mg/dL High: > or = 240 mg/dL Blood (Blood, Venous) 03/28/2022 6:57 AM CDT 03/28/2022 7:38 AM CDT Mary Chan M.D. LAB BLOOD ADD-ON [facility] [address] [place] [address], [facility] [address] [place] [address] from Last 3 Months or Most Recently Relevant to Health Maintenance
--- OUTSIDE RECORDS SUMMARY | 2024-02-07 10:03 | XMS_ITS | Clinical Summary ---
Author Organization [facility] Address [place], [place] [address] Care Team Providers Care Revenue Cycle Manager Name Role Phone Keyla Taylor MD Primary Care Provider + Allergies Active Allergy Reactions Criticality Noted Date Comments Gluten Other - Describe In Comment Field 07/16/2012 Celiac disease Lactose GI Upset 06/17/2021 Nitrofurantoin Hives 11/01/2008 Medications Medication Sig Dispensed Refills Start Date End Date Status azithromycin (ZITHROMAX) 250 mg tablet Take 500 mg (2 tabs) by mouth on day 1, then 250 mg (1 tab) daily for days 2-5. 6 tablet 0 02/20/2013 Active cetirizine (ZyrTEC) 10 mg tablet Take 1 Tablet (10 mg) by mouth once daily. 10/25/2023 Active EPINEPHrine (EpiPen) 0.3 mg/0.3 mL auto-injectorIndic ations:Adverse food reaction, initial encounter Inject 0.3 mg (1 Pen) intramuscular each time if needed for Allergic Reaction. 2 Each 3 10/25/2023 Active diphenhydramine HCl (BENADRYL ALLERGY ORAL) Take 25 mg by mouth. As needed Active MULTIVITAMIN ORAL Take by mouth. Daily Active Active Problems Problem Noted Date Diagnosed Date Seasonal allergies Celiac disease Encounters Date Type Department Care Team Description 11/25/2023 Telephone [facility] [address] [place] [address] Garry Beebe MD Results 11/21/2023 11:00 AM CDT Office Visit [facility] [address] [place] [address] Garry Beebe MD Allergies (4 wk follow-up. Pt has experienced tongue itching and swelling. Pt also gets an itchy scalp. Pt took benadryl which relieved the swelling. Pt is wanting to determine what is causing this. Wanting to check WBCs again. No antihistamines within the last 5 days. ) 11/21/2023 Telephone [facility] [address] [place], [place] [id number] Garry Beebe MD Results 11/21/2023 Travel 11/18/2023 Travel 11/11/2023 Telephone [facility] [address] [place] [address] Garry Beebe MD Results from Last 3 Months Social History Tobacco Use Types Packs/Day Years Used Date Smoking Tobacco: Former Cigarettes Q uit: 02/15/2003 Tobacco Cessation:Counseling Given: Yes Alcohol Use Standard Drinks/Week Comments Not Asked 0 (1 standard drink = 0.6 oz pur e alcohol) Social Connections Answer Date Recorded Frequency of Communication with Friends and Fami ly Not on file 10/25/2023 Sex and Gender Information Value Date Recorded Sex Assigned at Not on file Gender Identity Not on file Sexual Orientation Not on file Obstetrics History Last Filed Vital Signs Vital Sign Reading Time Taken Comments Blood Pressure 115/77 11/21/2023 11:04 AM CDT Pulse 70 11/21/2023 11:04 AM CDT Temperature 36.8 ??C (98.3 ??F) 02/20/2013 7:09 AM CD T Respiratory Rate 12 10/25/2023 7:13 AM CDT Oxygen Saturation 100% 11/21/2023 11:04 AM CDT Inhaled Oxygen Concentration - - Weight 59 kg (130 lb) 10/25/2023 7:13 AM CDT Height 160 cm (5' 3) 10/25/2023 7:13 AM CDT Body Mass Index 23.03 10/25/2023 7:13 AM CDT Plan of Treatment Health Maintenance Due Date Last Done Comments Tdap 1989 Depression screening for age 12+ 1990 HIV for age 15-65 1993 Hepatitis C screening for age 18-79 1996 Tetanus booster 1998 Colonoscopy through age 75 2023 Lipids for age 45-75 2023 Mammogram for age 45-75 2023 Pap test for age 21-65 08/12/2023 , 08/12/2020, 09/28/2015, Additional history exists Influenza for age 9-49 02/16/2024 BMI (ht and wt on same day) for age 18+ 10/24/2024 10/25/2023 COVID-19 vaccine series Completed 05/14/20 23, 03/22/2022, 04/26/2021, Additional history exists Pneumococcal series for age 6-64 Aged Out No longer eligible based on patient's age to complete this topic Procedures Procedure Name Priority Date/Time Associated Diagnosis Comments CBC WITH AUTO DIFFERENTIAL Routine 11/21/2023 12:32 PM CDT Leukopenia, unspecified type CBC WITH AUTO DIFFERENTIAL Routine 11/21/2023 12:32 PM CDT Leukopenia, unspecified type [place] PERCUTANEOUS TESTS W/ALLERGENIC EXTRACTS Routine 11/21/2023 12:00 AM CDT Adverse food reaction, subsequent encounter SADDLE AND HARNESS MAKER THIN PREP PAP SCREEN IMAGED Routine 08/12/2020 10:15 AM ACCOUNTS RECEIVABLE BOOKKEEPER from Last 3 Months or Most Recently Relevant to Health Maintenance Results * CBC WITH AUTO DIFFERENTIAL (11/21/2023 12:32 PM CDT) WHITE BLOOD COUNT 5.1 4.5 - 11.0 thou/cu mm 11/21/2023 12:42 PM CDT [facility] RED BLOOD COUNT 4.50 4.00 - 5.20 mil/cu mm 11/21/2023 12:42 PM CDT [facility] HEMOGLOBIN 13.8 12.0 - 16.0 g/dL 11/21/2023 12:42 PM CDT [facility] HEMATOCRIT 41.3 33.0 - 51.0 % 11/21/2023 12:42 PM CDT [facility] MCV 92 80 - 100 fL 11/21/2023 12:42 PM CDT [facility] MCH 30.7 26.0 - 34.0 pg 11/21/2023 12:42 PM CDT [facility] MCHC 33.4 32.0 - 36.0 g/dL 11/21/2023 12:42 PM CDT [facility] RDW 13.4 11.5 - 15.5 % 11/21/2023 12:42 PM CDT [facility] PLATELET COUNT 231 140 - 440 thou/cu mm 11/21/2023 12:42 PM CDT [facility] MPV 9.9 6.5 - 11.0 fL 11/21/2023 12:42 PM CDT [facility] % NEUT 59.3 % 11/21/2023 12:42 PM CDT [facility] % LYMPH 27.7 % 11/21/2023 12:42 PM CDT [facility] % MONO 11.2 % 11/21/2023 12:42 PM CDT [facility] % EOS 1.2 % 11/21/2023 12:42 PM CDT [facility] % BASO 0.6 % 11/21/2023 12:42 PM CDT [facility] ABSOLUTE NEUTROPHILS 3.0 1.7 - 7.0 thou/cu mm 11/21/2023 12:42 PM CDT [facility] ABSOLUTE LYMPHOCYTES 1.4 0.9 - 2.9 thou/cu mm 11/21/2023 12:42 PM CDT [facility] ABSOLUTE MONOCYTES 0.6 <0.9 thou/cu mm 11/21/2023 12:42 PM CDT [facility] ABSOLUTE EOSINOPHILS 0.1 <0.5 thou/cu mm 11/21/2023 12:42 PM CDT [facility] ABSOLUTE BASOPHILS 0.0 <0.3 thou/cu mm 11/21/2023 12:42 PM CDT [facility] Blood BLOOD SPECIMEN / Unknown Venipuncture / Unknown 11/21/2023 12:32 PM CDT 11/21/2023 12:33 PM CDT Garry Beebe MD HEMATOLOGY [facility] [address] [place] [address], * [place] PERCUTANEOUS TESTS W/ALLERGENIC EXTRACTS (11/21/2023 12:00 AM CDT) Garry Beebe MD PB - ALLERGY AND I MMUNOLOGY SERVICES * SADDLE AND HARNESS MAKER THIN PREP PAP SCREEN IMAGED (08/12/2020 10:15 AM ACCOUNTS RECEIVABLE BOOKKEEPER) Case Report Gynecologic Cytology Report ? Case: [id number] ? Authorizing Provider: ??Geno Gonzalez MD ?Collected: ? 08/12/2020 1015 ? Ordering Location: ? [facility] ?Received: ?08/12/2020 1807 ? First Screen: ?Ezio York ? Specimen: ?SADDLE AND HARNESS MAKER ThinPrep Vial Screening, Cervical/Vaginal ? 08/22/2020 9:43 AM ACCOUNTS RECEIVABLE BOOKKEEPER [facility] INTERPRETATION/ RESULT NEGATIVE FOR INTRAEPITHELIAL LESION OR MALIGNANCY (NIL) (none) 08/22/2020 9:43 AM ACCOUNTS RECEIVABLE BOOKKEEPER [facility] IMEN ADEQUACY Satisfactory for evaluation Endocervical component present 08/22/2020 9:43 AM ACCOUNTS RECEIVABLE BOOKKEEPER [facility] HPV REQUEST HPV and PAP 08/22/2020 9:43 AM ACCOUNTS RECEIVABLE BOOKKEEPER [facility] Date of LMP 08/03/2020 08/22/2020 9:43 AM ACCOUNTS RECEIVABLE BOOKKEEPER [facility] Last Pap Date 09/28/2015 08/22/2020 9:43 AM ACCOUNTS RECEIVABLE BOOKKEEPER [facility] Last Pap Result NIL 9:43 AM ACCOUNTS RECEIVABLE BOOKKEEPER [facility] Comment:-hpv Additional Information 08/22/2020 9:43 AM [facility] Comment: Interpreted at [facility] - [address], [place] [address] Automated Review Successful 08/22/2020 9:43 AM [facility] Comment:Specimen processed s uccessfully by automated booster plant operator device, ThinPrep Imaging System, [employer] ANCILLARY TESTING SADDLE AND HARNESS MAKER HPV Ordered, Please see separate report 08/22/2020 9:43 AM [facility] Note The pap test is a screening technique, not a diagnostic procedure. It is used primarily to screen for squamous cancers and precursor lesions. Published studies have shown that it is subject to both false negative and false positive results. The pap test should not be used as the sole means to diagnose or exclude pre-malignant and malignant lesions. 08/22/2020 9:43 AM ACCOUNTS RECEIVABLE BOOKKEEPER [facility] Other (Cervical/Vagina l) 08/12/2020 10:15 AM ACCOUNTS RECEIVABLE BOOKKEEPER 08/12/2020 6:07 PM ACCOUNTS RECEIVABLE BOOKKEEPER Geno Gonzalez MD PATHOLOGY/CYTOLOGY [facility] [address] [place] [address], [place] from Last 3 Months or Most Recently Relevant to Health Maintenance Care Teams Revenue Cycle Manager Relationship Specialty Start Date End Date Keyla Taylor MD [address] [place], [place] [id number] PCP - General Family Practice 10/25/23
--- OUTSIDE RECORDS SUMMARY | 2024-02-07 10:03 | XMS_ITS | Clinical Summary ---
Author Organization [facility] Address [address] [place] [address] Care Team Providers Care Re Examiner Name Role Phone Unavailable Primary Care Provider Unavailabl e Source Comments Patient records contain information from all sites at [facility]. For routine questions regarding patient records, call [phone] during business hours, M-F 8:00 AM - 5:00 PM Central Time. Record requests for emergency care only can be directed to [phone] at any time.[facility] Allergies Active Allergy Reactions Criticality Noted [...] How often do you attend chur or gnosticism services? Never 03/25/2022 Do you belong to any clubs o r organizations such as amish groups, unions, fraternal or athletic groups, or [...] and heating? Not hard at all 03/25/2022 [facility] [place] of Occupat ional Health - Occupational Stress [...] place to sleep or slept in a halfway (including now)? No 03/25/2022 Nutrition Answer Date [...] Master's degree (e.g., MA, MS, Alli, MEd, STRETCH BOX TENDER, MARVIN) 03/25/2022 Sex and Gender Information Value [...] Health Maintenance Due Date Last Done Comments CT Colonography 1978 Cologuard 1978 Colonoscopy 1978 Colorectal Cancer Screening 1978 FIT 1978 HIV Screening 1978 Hepatitis C Screening 1978 Mammogram 1978 Hepatitis B Vaccines (3 of 3 - 19+ 3-dose series) 06/28/2010 05/03/2010, 01/02/2010, 11/15/2009 Depression Screening (Annual PHQ-2) 06/17/2023 Cervical Cancer Screening 08/12/2023 08/12/2020 HPV Vaccines (3 - 3-dose SCDM series) 08/15/2023 04/22/2023, 02/14/2023 Influenza Vaccine (#1) 2024 , 05/02/2022, 04/19/2021, Additional history exists Fasting Glucose for Diabetes Screening 10/24/2026 10/25/2023, 03/28/2022 Lipid (Cholesterol) Screening 03/28/2027 03/28/2022 DTaP,Tdap,and Td Vaccines (7 - Td or Tdap) 02/14/2033 02/14/2023, 11/09/2009, 10/10/1983, Additional history exists COVID-19 Vaccine Completed 05/14/2023, 11/2021, 04/26/2021, Additional history exists Pneumococcal vaccine (0-64 years) Aged Out No longer eligible based on [...] Chan M.D. LAB BLOOD NON ADD -ON Performing Organization Address [facility] Co de Phone Number [address] [place] [address] * Cholesterol, Total (03/28/2022 6:57 AM CDT) Cholesterol, Total 164 mg/dL 03/28/2022 7:58 AM CDT DTL Comment: ----REFERENCE VALUE---- Desirable: < 200 mg/dL Borderline High: 200 - 239 mg/dL High: > or = 240 mg/dL Blood (Blood, Venous) 03/28/2022 6:57 AM CDT 03/28/2022 7:38 AM CDT Mary Chan M.D. LAB BLOOD ADD-ON Performing Organization Address [facility] Co de Phone Number [address] [place] [address] from Last 3 Months or Most Recently Relevant to Health Maintenance
--- OUTSIDE RECORDS SUMMARY | 2024-02-07 10:03 | XMS_ITS ---
Author Organization [facility] Address [address] [place] [address] Care Team Providers Care Trolley Car Mechanic Name Role Phone Unavailable Unavailable Unavailable Surgery Details Not on file Complications Check Surgery Details section. Procedure Estimated Blood Loss Check Surgery Details section. Procedure Findings Check Surgery Details section. Procedure Specimens Taken Check Surgery Details section.
[2024-02-07 12:13] LABS: Bacterial Vaginosis* POSITIVE (Negative); Candida glab/krus NOT DETECTED (No Detected); Candida species NOT DETECTED (No Detected); Trichomonas vaginalis NOT DETECTED (No Detected)
[2024-02-07 12:25] LABS: Chlamydia DNA Amplified* NOT DETECTED (No Detected); GC DNA Amplified* NOT DETECTED (No Detected)
== END 2024-02-07 09:59 | disposition home or self-care (01) ==
PROVIDERS: PCP Family Medicine; Visit Provider Registered Nurse
DX: N89.8 Other specified noninflammatory disorders of vagina (principal); R35.0 Frequency of micturition; Z11.3 Encounter for screening for infections with a predominantly sexual mode of transmission; Z11.59 Encounter for screening for other viral diseases; Z13.9 Encounter for screening, unspecified
CPT/HCPCS: 81513; 86592; 86703; 86803; 87086; 87340; 87481; 87491; 87591; 87661

== ENCOUNTER 2024-02-10 08:15 | Outpatient (CLI) | payer MEDICAID, SELFPAY ==
--- NOTE | 2024-02-10 08:15 | CRLHL7_ITS ---
For Patients: As a result of the Century Cures Act, medical imaging exams and procedure reports are released immediately into your electronic medical record. You may view this report before your referring provider. If you have questions, please contact your health care provider. BILATERAL SCREENING MAMMOGRAM WITH COMPUTER-AIDED DETECTION AND TOMOSYNTHESIS TECHNIQUE: CC and MLO views were obtained. These mammographic images have been obtained using full-field digital technique. These mammographic images were interpreted with the benefit of computer-aided detection. Breast Tomosynthesis was used in this interpretation. COMPARISON FILM: 05/15/22, 06/13/20, 05/07/19. FINDINGS: The breasts are extremely dense, which lowers the sensitivity of mammography. IMPRESSION: There is no radiographic evidence for malignancy. ASSESSMENT: BI-RADS Category 1: Negative RECOMMENDATION: Routine screening mammogram in 1 year. A lay language report of this examination will be provided to the patient. Sergei Fry M.D. Diagnostic Radiologist [email or web address] SP/Dictated by: Sergei Fry MD @ 02/13/2024 9:36:00 AM (Electronically Signed)
--- OUTSIDE RECORDS SUMMARY | 2024-02-10 08:19 | XMS_ITS | Referral Summary ---
Author Organization [facility] Address [address] [place] [address] Care Team Providers Care Registered Private Duty Nurse Name Role Phone Unavailable Primary Care Provider Unavailabl e Source Comments Patient records contain information from all sites at [facility]. For routine questions regarding patient records, call [phone] during business hours, M-F 8:00 AM - 5:00 PM Central Time. Record requests for emergency care only can be directed to [phone] at any time.[facility] Allergies Active Allergy Reactions Criticality Noted Date [...] How often do you attend chur or hoahaoism services? Never 03/25/2022 Do you belong to any clubs o r organizations such as faith groups, unions, fraternal or athletic groups, or [...] and heating? Not hard at all 03/25/2022 [facility] [place] of Occupat ional Health - Occupational Stress [...] or slept in a chcf (including now)? No 03/25/2022 Nutrition Answer Date [...] Master's degree (e.g., MA, MS, Alli, MEd, MANDATE RETAIL SERVICE MERCHANDISER, MARVIN) 03/25/2022 Sex and Gender Information Value [...] Chan M.D. LAB BLOOD NON ADD -ON [facility] [address] [place] [address], [facility] [address] [place] [address] * Cholesterol, Total (03/28/2022 6:57 AM CDT) Cholesterol, Total 164 mg/dL 03/28/2022 7:58 AM CDT DTL Comment: ----REFERENCE VALUE---- Desirable: < 200 mg/dL Borderline High: 200 - 239 mg/dL High: > or = 240 mg/dL Blood (Blood, Venous) 03/28/2022 6:57 AM CDT 03/28/2022 7:38 AM CDT Mary Chan M.D. LAB BLOOD ADD-ON [facility] [address] [place] [address], [facility] [address] [place] [address] from Last 3 Months or Most Recently Relevant to Health Maintenance
--- OUTSIDE RECORDS SUMMARY | 2024-02-10 08:19 | XMS_ITS | Clinical Summary ---
Author Organization [employer] [facility] Address [place], [place] [address] Care Team Providers Care Railroad Supervisor Of Engines Name Role Phone Keyla Taylor MD Primary [...] Type Department Care Team Description 11/25/2023 Telephone [facility] [address] [place] [address] Garry Beebe MD Results 11/21/2023 11:00 AM CDT Office Visit [facility] [address] [place] [address] Garry Beebe MD Allergies (4 wk follow-up. Pt has experienced tongue itching and swelling. Pt also gets an itchy scalp. Pt took benadryl which relieved the swelling. Pt is wanting to determine what is causing this. Wanting to check WBCs again. No antihistamines within the last 5 days. ) 11/21/2023 Telephone [facility] [address] [place], [place] [id number] Garry Beebe MD Results 11/21/2023 Travel 11/18/2023 Travel 11/11/2023 Telephone [facility] [address] [place] [address] Garry Beebe MD Results from Last 3 [...] 11/21/2023 12:32 PM CDT Leukopenia, unspecified type DE PERCUTANEOUS TESTS W/ALLERGENIC EXTRACTS Routine 11/21/2023 12:00 AM CDT Adverse food reaction, subsequent encounter NURSE RN BSN THIN PREP PAP SCREEN IMAGED Routine 08/12/2020 10:15 AM REGISTERED CLINICAL DIETITIAN from Last 3 Months or Most Recently Relevant to Health Maintenance Results * CBC WITH AUTO DIFFERENTIAL (11/21/2023 12:32 PM CDT) WHITE BLOOD COUNT 5.1 4.5 - 11.0 thou/cu mm 11/21/2023 12:42 PM CDT [facility] RED BLOOD COUNT 4.50 4.00 - 5.20 mil/cu mm 11/21/2023 12:42 PM CDT [facility] HEMOGLOBIN 13.8 12.0 - 16.0 g/dL 11/21/2023 12:42 PM CDT [facility] HEMATOCRIT 41.3 33.0 - 51.0 % 11/21/2023 12:42 PM CDT [facility] MCV 92 80 - 100 fL 11/21/2023 12:42 PM CDT [facility] MCH 30.7 26.0 - 34.0 pg 11/21/2023 12:42 PM CDT [facility] MCHC 33.4 32.0 - 36.0 g/dL 11/21/2023 12:42 PM CDT [facility] RDW 13.4 11.5 - 15.5 % 11/21/2023 12:42 PM CDT [facility] PLATELET COUNT 231 140 - 440 thou/cu mm 11/21/2023 12:42 PM CDT [facility] MPV 9.9 6.5 - 11.0 fL 11/21/2023 12:42 PM CDT [facility] % NEUT 59.3 % 11/21/2023 12:42 PM CDT [facility] % LYMPH 27.7 % 11/21/2023 12:42 PM CDT [facility] % MONO 11.2 % 11/21/2023 12:42 PM CDT [facility] % EOS 1.2 % 11/21/2023 12:42 PM CDT [facility] % BASO 0.6 % 11/21/2023 12:42 PM CDT [facility] ABSOLUTE NEUTROPHILS 3.0 1.7 - 7.0 thou/cu mm 11/21/2023 12:42 PM CDT [facility] ABSOLUTE LYMPHOCYTES 1.4 0.9 - 2.9 thou/cu mm 11/21/2023 12:42 PM CDT [facility] ABSOLUTE MONOCYTES 0.6 <0.9 thou/cu mm 11/21/2023 12:42 PM CDT [facility] ABSOLUTE EOSINOPHILS 0.1 <0.5 thou/cu mm 11/21/2023 12:42 PM CDT [facility] ABSOLUTE BASOPHILS 0.0 <0.3 thou/cu mm 11/21/2023 12:42 PM CDT [facility] Blood BLOOD SPECIMEN / Unknown Venipuncture / Unknown 11/21/2023 12:32 PM CDT 11/21/2023 12:33 PM CDT Garry Beebe MD HEMATOLOGY [facility] [address] [place] [address], * DE PERCUTANEOUS TESTS W/ALLERGENIC EXTRACTS (11/21/2023 12:00 AM CDT) Garry Beebe MD PB - ALLERGY AND I MMUNOLOGY SERVICES * NURSE RN BSN THIN PREP PAP SCREEN IMAGED (08/12/2020 10:15 AM REGISTERED CLINICAL DIETITIAN) Case Report Gynecologic Cytology Report ? Case: [id number] ? Authorizing Provider: ??Geno Gonzalez MD ?Collected: ? 08/12/2020 1015 ? Ordering Location: ? [facility] ?Received: ?08/12/2020 1807 ? First Screen: ?Ezio [place] ? Specimen: ?NURSE RN BSN ThinPrep Vial Screening, Cervical/Vaginal ? 08/22/2020 9:43 AM REGISTERED CLINICAL DIETITIAN [facility] INTERPRETATION/ RESULT NEGATIVE FOR INTRAEPITHELIAL LESION OR MALIGNANCY (NIL) (none) 08/22/2020 9:43 AM REGISTERED CLINICAL DIETITIAN [facility] IMEN ADEQUACY Satisfactory for evaluation Endocervical component present 08/22/2020 9:43 AM REGISTERED CLINICAL DIETITIAN [facility] HPV REQUEST HPV and PAP 08/22/2020 9:43 AM REGISTERED CLINICAL DIETITIAN [facility] Date of LMP 08/03/2020 08/22/2020 9:43 AM REGISTERED CLINICAL DIETITIAN [facility] Last Pap Date 09/28/2015 08/22/2020 9:43 AM REGISTERED CLINICAL DIETITIAN [facility] Last Pap Result NIL 9:43 AM REGISTERED CLINICAL DIETITIAN [facility] Comment:-hpv Additional Information 08/22/2020 9:43 AM [facility] Comment: Interpreted at [facility] Advanced Image Enhancement [facility] - [address], [place] [address] Automated Review Successful 08/22/2020 9:43 AM [facility] Comment:Specimen processed s uccessfully by automated chips screen tender device, ThinPrep Imaging System, [employer] ANCILLARY TESTING NURSE RN BSN HPV Ordered, Please see separate report 08/22/2020 9:43 AM [facility] Note The pap test is a screening technique, not a diagnostic procedure. It is used primarily to screen for squamous cancers and precursor lesions. Published studies have shown that it is subject to both false negative and false positive results. The pap test should not be used as the sole means to diagnose or exclude pre-malignant and malignant lesions. 08/22/2020 9:43 AM REGISTERED CLINICAL DIETITIAN [facility] Other (Cervical/Vagina l) 08/12/2020 10:15 AM REGISTERED CLINICAL DIETITIAN 08/12/2020 6:07 PM REGISTERED CLINICAL DIETITIAN Geno Gonzalez MD PATHOLOGY/CYTOLOGY [facility] [address] [place] [address], [place] from Last 3 Months or Most Recently Relevant to Health Maintenance Care Teams Railroad Supervisor Of Engines Relationship Specialty Start Date End Date Keyla Taylor MD [address] [place], [place] [phone] PCP - General Family Practice 10/25/23
--- OUTSIDE RECORDS SUMMARY | 2024-02-10 08:19 | XMS_ITS | Clinical Summary ---
Author Organization [facility] Address [address] [place] [address] Care Team Providers Care Assistant Corporation Counsel Name Role Phone Unavailable Primary Care Provider Unavailabl e Source Comments Patient records contain information from all sites at [facility]. For routine questions regarding patient records, call [phone] during business hours, M-F 8:00 AM - 5:00 PM Central Time. Record requests for emergency care only can be directed to [phone] at any time.[facility] Allergies Active Allergy Reactions Criticality Noted Date [...] How often do you attend chur or congregation services? Never 03/25/2022 Do you belong to any clubs o r organizations such as mandaen groups, unions, fraternal or athletic groups, or [...] and heating? Not hard at all 03/25/2022 [facility] [place] [facility] - Occupational Stress [...] place to sleep or slept in a skilled nursing (including now)? No 03/25/2022 Nutrition Answer Date [...] Master's degree (e.g., MA, MS, Alli, MEd, RACK PUSHER, MARVIN) 03/25/2022 Sex and Gender Information Value [...] BLOOD NON ADD -ON Performing Organization Address [facility] Co de Phone Number [address] [place] [address] * Cholesterol, Total (03/28/2022 6:57 AM CDT) Cholesterol, Total 164 mg/dL 03/28/2022 7:58 AM CDT DTL Comment: ----REFERENCE VALUE---- Desirable: < 200 mg/dL Borderline High: 200 - 239 mg/dL High: > or = 240 mg/dL Blood (Blood, Venous) 03/28/2022 6:57 AM CDT 03/28/2022 7:38 AM CDT Mary Chan M.D. LAB BLOOD ADD-ON Performing Organization Address City/[facility] Co de Phone Number [address] [place] [address] from Last 3 Months or Most Recently Relevant to Health Maintenance
--- OUTSIDE RECORDS SUMMARY | 2024-02-10 08:19 | XMS_ITS ---
Author Organization [facility] Address [address] [place] [address] Care Team Providers Care Fiberglass Container Winding Operator Name Role Phone Unavailable Unavailable Unavailable Surgery Details Not on file Complications Check Surgery Details section. Procedure Estimated Blood Loss Check Surgery Details section. Procedure Findings Check Surgery Details section. Procedure Specimens Taken Check Surgery Details section.
== END 2024-02-10 08:16 | disposition home or self-care (01) ==
LOC: MAMMO 08:16
PROVIDERS: PCP Family Medicine; Visit Provider Family Medicine
DX: Z12.31 Encounter for screening mammogram for malignant neoplasm of breast (principal); R92.2 Inconclusive mammogram
CPT/HCPCS: 77063; 77067

== ENCOUNTER 2024-02-18 11:43 | Outpatient (CLI) | payer OTHER, SELFPAY ==
[2024-02-18 15:27] LABS: Bacterial Vaginosis* Negative (Negative); Candida glab/krus NOT DETECTED (No Detected); Candida species NOT DETECTED (No Detected); Trichomonas vaginalis NOT DETECTED (No Detected)
== END 2024-02-18 11:44 | disposition home or self-care (01) ==
PROVIDERS: PCP Family Medicine; Visit Provider Registered Nurse
DX: N89.8 Other specified noninflammatory disorders of vagina (principal); N39.0 Urinary tract infection, site not specified
CPT/HCPCS: 81513; 87086; 87481; 87661

== ENCOUNTER 2025-03-23 14:37 | Outpatient (CLI) | payer OTHER, SELFPAY ==
--- NOTE | 2025-03-23 14:40 | CRLHL7_ITS ---
For Patients: As a result of the Century Cures Act, medical imaging exams and procedure reports are released immediately into your electronic medical record. You may view this report before your referring provider. If you have questions, please contact your health care provider. INDICATION: BILATERAL SCREENING MAMMOGRAM, ASYMPTOMATIC 44 Y/O FEMALE COMPARISON: 02/10/2024, 05/15/2022, 06/13/2020 TECHNIQUE: Digital mammogram in CC and MLO projections including computer-aided detection (CAD) and tomosynthesis. BREAST COMPOSITION: The breasts are heterogeneously dense, which may obscure small masses. FINDINGS: No suspicious findings. ASSESSMENT: BI-RADS 1 Negative RECOMMENDATION: Annual screening mammogram. A lay language report of this examination will be provided to the patient. Dictated by: Sergei Fry MD @ 03/24/2025 09:07:53 (Electronically Signed)
== END 2025-03-23 14:38 | disposition home or self-care (01) ==
LOC: MAMMO 14:37
PROVIDERS: PCP Family Medicine; Visit Provider Family Medicine
DX: Z12.31 Encounter for screening mammogram for malignant neoplasm of breast (principal); R92.333 Mammographic heterogeneous density, bilateral breasts
CPT/HCPCS: 77063; 77067

== ENCOUNTER 2025-05-21 07:47 | Outpatient (CLI) | payer OTHER, SELFPAY ==
[2025-05-23 09:48] LABS: HPV Source Cervical/Vag
[2025-05-27 15:48] LABS: Pap Test Digital Imaging Done; Pap Test Reviewed by Pathologi Done
== END 2025-05-21 07:48 | disposition home or self-care (01) ==
PROVIDERS: PCP Family Medicine; Visit Provider Family Medicine
DX: Z12.4 Encounter for screening for malignant neoplasm of cervix (principal); D50.9 Iron deficiency anemia, unspecified; M47.816 Spondylosis without myelopathy or radiculopathy, lumbar region; R53.83 Other fatigue
CPT/HCPCS: 80053; 80061; 82728; 87624; 87625; 88141; 88142; 88175